=== PATIENT | female | born 1940 | race Caucasian/White ===

== ENCOUNTER 2016-12-25 13:45 | Outpatient (CLI) | payer MEDICARE, OTHER ==
--- OUTSIDE RECORDS SUMMARY | 2016-12-25 15:40 | XMS | Clinical Summary ---
:1940 Author Organization [facility] Address [address] [place] [address] Phone Care Team Providers Name Role Phone , Primary Care Provider Unavailable Allergies Not on File Current Medications Not on file Active Problems Not on file Social History Tobacco Use Types Packs/Day Years Used Date Never Assessed Sex Assigned at Date Recorded Not on file Last Filed Vital Signs Not on file Plan of Treatment Not on file Results Not on filefrom Last 3 Months
[2016-12-25] MEDS ORDERED: Gadobenate Dimeglumine 529 MG/1 ML (20ML VIAL) ONE (16:05)
--- NOTE | 2016-12-25 17:08 | RAD ---
FOUR VIEWS OF THE LUMBAR SPINE 12/25/16 COMPARISON: None. HISTORY: Lumbar radiculopathy, back pain with pain radiating into bilateral legs. FINDINGS: Standing frontal radiograph is markedly limited secondary to rotation. There is dextroscoliosis at t he thoracolumbar junction with a rotatory component. There is also significant rotolevoscoliosis of the lumbar spine. The degree of rotation and motion significantly limits evaluation of the frontal f ilm. The neutral lateral exam demonstrates severe anterior wedge compression fracture of L1 vertebral bod y with approximately 75-80% loss of vertebral body height anteriorly. There is an anterior wedge com pression fracture of T12 with approximately 35% loss of vertebral body height. No definite fracture of L2, L3, L4 or L5 noted. There is atherosclerotic calcification of the abdominal aorta. There is multilevel lower lumbar spin e facet hypertrophic change. Standing neutral lateral imaging demonstrates retrolisthesis of L4 on L5 in the 7 mm range. The retrolisthesis of L4 on L5 is decreased significantly on flexion to approximately 2-3 mm. On ext ension imaging, the retrolisthesis of L4 on L5 measures in the 7 mm range. Mild retrolisthesis at L1-2, L2-3, and L3-4 is noted as well, measuring 5 mm on neutral imaging at L 1-2, L2-3 and L3-4. Upon flexion, the retrolisthesis at L1-2, L2-3 and L3-4 measures approximately 5 mm at each level and on extension, this retrolisthesis of L1-2, L2-3, and L3-4 is also unchanged at approximately 5 mm. IMPRESSION: Multilevel degenerative change seen within the lumbar spine as detailed above. There is also age ind eterminate fracture deformity at T12 and L1 as described above. There is prominent rotoscoliosis inv olving the thoracolumbar spine. POS: [facility]
--- NOTE | 2016-12-25 21:33 | MRI ---
LUMBAR SPINE MRI WITH AND WITHOUT CONTRAST 12/25/16 COMPARISON: None. HISTORY: Lumbar radiculopathy, low back pain radiating down bilateral legs. Patient denies history of surgery or injury. Patient reports a history of pain for "several years." TECHNIQUE: Multiplanar and multisequence MRI imaging of the lumbar spine provided with and without contrast. FINDINGS: Assuming five lumbar type vertebral bodies, there is a severe compression deformity of the L1 verteb ral body with approximately 80% loss of vertebral body height centrally. There is mild retropulsion at the L1 level associated with this fracture with no associated central canal stenosis. The STIR im aging demonstrates mild edema within the central aspect of this L1 vertebral body fracture suggestin g that it is acute/subacute in nature. There is a fracture of the T12 vertebral body with minimal re tropulsion resulting in no significant central canal stenosis. The degree of vertebral body height l oss associated with the T12 fracture is in the 30% range and STIR imaging demonstrates no evidence f or edema suggesting that this T12 fracture is chronic. There is no significant anterolisthesis or retrolisthesis seen within the lumbar spine. The conus medullaris terminates at the T12-L1 level. T12-L1: Disc space narrowing and disc desiccation. Mild facet hypertrophy bilaterally. No significan t central canal or neural foraminal stenosis. Perineural sleeve cyst noted on the right. L1-2: Mild bilateral facet hypertrophy. There is mild disc space narrowing. No significant central c anal or neural foraminal stenosis. Small nerve root sleeve cyst on right. L2-3: Mild bilateral facet hypertrophy and hypertrophy of the ligamentum flavum. Mild disc space todd rowing and disc bulge with no significant central canal stenosis. Mild bilateral neural foraminal st enosis, right greater than left. L3-4: Mild bilateral facet hypertrophy and hypertrophy of the ligamentum flavum. There is disc space narrowing, disc desiccation and mild disc bulge with no significant central canal stenosis. Mild bi lateral neural foraminal stenosis, right greater than left. L4-5: There is moderate facet hypertrophy bilaterally, left greater than right. There is disc space narrowing, disc desiccation, and disc bulge with a mild/moderate degree of central canal stenosis. T here is mild/moderate bilateral neural foraminal stenosis, right greater than left. L5-S1: There is disc desiccation. There is a central annular tear. There is mild bilateral facet hyp ertrophy. There is a probable small synovial cyst associated with the medial aspect of the right fac et joint measuring in the 7 mm range. There is minimal central canal stenosis, primarily right sided . No significant neural foraminal stenosis. There is a multiloculated complex, primarily T2 hyperintense lesion within the left upper quadrant o f the abdomen which appears to be associated with a distal pancreatic body and tail of the pancreas. This is a multiloculated nonspecific septated lesion, with a component measuring up to 3 cm in AP d imension. It involves a portion of the expected location of the pancreatic body and tail measuring a t least 5-6 cm in length. There is a probable exophytic left renal cyst measuring in the 4-5 cm rang e. Numerous T2 hyperintense lesions are seen associated with the left kidney, likely on the basis of mu ltiple small left renal cysts. There is a T2 hyperintense structure inferior to the right kidney with an associated tubular T2 hype rintense structure. Perhaps this is an ectopic gallbladder with dilated extrahepatic biliary tree. T his could potentially be related to bowel. There is trace perihepatic free fluid. The hepatic parenchyma appears markedly irregular, nodular an d heterogeneous. The postcontrast imaging demonstrates no abnormal enhancement involving nerve roots of the cauda equ russ. No discrete abnormal enhancement is seen involving intervertebral discs or imaged osseous struc tures. IMPRESSION: 1. Complex multiloculated T2 hyperintense lesion in the region of the distal pancreatic body an d tail, concerning for a cystic pancreatic neoplasm. 2. Marked heterogeneity of the hepatic parenchyma with a lobulated peripheral contour which may represent an infiltrating hepatic process or cirrhotic change. 3. L1 fracture with edema suggesting an acute/subacute age. 4. Multilevel degenerative change. Incidental findings within the abdomen/pelvis should be further assessed with CT examination of abdo men and pelvis with and without IV contrast using a pancreatic mass protocol. Results and recommendations for further imaging discussed with Dr. Watts at 3:55 p.m., 12/25/16. Code CR POS: [facility]
== END 2016-12-25 13:46 | disposition home or self-care (01) ==
LOC: TBSIIMAG 13:45
PROVIDERS: ATTEND Surgery
DX: M47.26 Other spondylosis with radiculopathy, lumbar region (principal); M54.9 Dorsalgia, unspecified; S32.019A Unspecified fracture of first lumbar vertebra, initial encounter for closed fracture; R60.0 Localized edema
CPT/HCPCS: 72110; 72158; A9579

== ENCOUNTER 2017-02-28 09:03 | Outpatient (CLI) | payer MEDICARE, OTHER ==
--- NOTE | 2017-02-28 12:34 | CT ---
EXAM: THORACIC SPINE CT WITHOUT CONTRAST: HISTORY: Thoracolumbar fracture. Back pain mainly along the lower back with extension to the left leg. COMPARISON: None. TECHNIQUE: Thoracic spine CT is performed in the axial plane. Reformatted images are submitted for interpretati on. The thoracic spine as well as the L1 and L2 vertebral bodies are included on this exam. FINDINGS: There is atherosclerosis of the aorta. Heart size is within normal limits. There are coronary calci fications. There is no evidence of lymphadenopathy. No retroperitoneal mass, lymphadenopathy, or hematoma. Visualized solid organs are unremarkable. Incompletely evaluated bilateral renal cysts. No retroperitoneal mass, lymphadenopathy, or hematoma. Scarring of the left lung apex. There is a cavitary lesion of the right lung apex with a thickened n odular wall measuring 3.3 x 2.1 cm. Additional bronchiectasis and scarring in the right upper lobe a re noted. Focal nodule in the upper lobe adjacent to the thoracic aorta measuring 1.4 x 0.9 cm. There is diffuse bone demineralization. There is mild loss of vertebral body height at the T2 verteb ral body level. There is previous vertebroplasty change with moderate loss of vertebral body height at T7. Vertebroplana at T9 is noted. Mild loss of vertebral body height at T10. Vertebroplana at L 1. Calcification of the disk at the T10-T11 and T11-T12 level. Limited evaluation of the contents of the central spinal canal and neural foramina. No high-grade ce ntral canal stenosis. Varying degrees of foraminal narrowing. IMPRESSION: 1. Previous vertebroplasty at T7. 2. 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 3. Varying degrees of central canal stenosis and foraminal narrowing. Evaluation is limited by dee evans. POS: [facility]
--- NOTE | 2017-02-28 12:45 | CT ---
CT LUMBAR SPINE NONCONTRAST: 02/28/2017 HISTORY: A 76-year-old female with S22.008A (thoracolumbar fractures). TECHNIQUE: On this lumbar spine CT, axial images were obtained from the L1-L2 level through the S4-S5 level, wit h coronal and sagittal reconstructions. The T12-L1 and the L1 levels are evaluated on the thoracic s pine CT obtained on the same day. FINDINGS: There is dextroscoliosis of the thoracic spine and levoscoliosis of the lumbar spine, with the apex o f the lumbar curvature at L4-L5. There are five lumbar type vertebrae. No spondylolysis and no carlos a r spondylolisthesis. All of the lumbar vertebral body heights, from L1 through L5, are maintained. T12: Old burst fracture with collapse of vertebral body height. See separate report of thoracic spi ne CT. T12-L1: No central stenosis. Mild bilateral neural foraminal stenosis. L1-L2: No central stenosis or high-grade neural foraminal stenosis. No severe disk space narrowing. L2-L3: Mild disk space narrowing, asymmetrically greater posteriorly and to the right. Mild disk bu lge. Mild ligamentum flavum thickening. Mild degenerative facet changes. Mild to moderate central spinal canal stenosis. Bilateral mild to moderate neural foraminal stenosis. L3-L4: Mild to moderate ligamentum flavum thickening. Mild degenerative facet changes. Disk space maintained. Mild disk bulge. Mild to moderate bilateral neural foraminal stenosis. Moderate centra l spinal canal stenosis. Disk space maintained. L4-L5: Moderate ligamentum flavum thickening. Mild to moderate bilateral degenerative facet changes . Diffuse disk bulge, larger at this level than at the above levels. Moderate to severe right neura l foraminal stenosis. Moderate left neural foraminal stenosis. Severe central spinal canal stenosis . Mild disk space narrowing, asymmetrically on the right side. L5-S1: An approximately 0.9 x 0.7 cm synovial cyst arising from the right facet complex indents the right posterolateral aspect of the thecal sac. Mild central spinal canal stenosis. Disk space maint ained. Mild diffuse disk bulge. No high-grade neural foraminal stenosis. No high grade bilateral d egenerative facet changes. There is a small amount of free fluid in the pelvic cavity. There is a small amount of free fluid in the right retroperitoneum, inferior to the right renal lower pole. Alternatively, this could be a l arge pedunculated cyst arising from the lower pole cortex of the right kidney. This is incompletely evaluated. IMPRESSION: 1. S-shaped scoliosis of the thoracolumbar spine. 2. Old burst fracture of T12. 3. Severe central spinal canal stenosis at L4-L5. 4. Osteopenia. 5. No compression fracture of the lumbar spine. POS: [facility]
== END 2017-02-28 09:04 | disposition home or self-care (01) ==
LOC: TBSIIMAG 09:03
PROVIDERS: ATTEND Surgery
DX: S22.009A Unspecified fracture of unspecified thoracic vertebra, initial encounter for closed fracture (principal); S32.009A Unspecified fracture of unspecified lumbar vertebra, initial encounter for closed fracture; M48.04 Spinal stenosis, thoracic region; M48.061 Spinal stenosis, lumbar region without neurogenic claudication; M85.80 Other specified disorders of bone density and structure, unspecified site; M41.9 Scoliosis, unspecified; Z98.1 Arthrodesis status
CPT/HCPCS: 72128; 72131

== ENCOUNTER 2019-02-08 13:34 | Emergency (ER) | payer MEDICARE, OTHER ==
--- NOTE | 2019-02-08 14:37 | RAD ---
Exam: XR Wrist 3 Rt View STANDARD HISTORY: Fall 10 days ago with injury to right wrist. Patient has pain with range of motion involving the righ t wrist. COMPARISON: None FINDINGS: There is an impacted fracture involving the distal right radial metaphysis. Osteoarthritis involves t he first carpal metacarpal joint. Osteopenia is present. IMPRESSION: 1. Impacted fracture distal right radial metaphysis. 2. Osteopenia and osteoarthritis.
[2019-02-08] MEDS ORDERED: Adacel (T-DAP) 0.5 ML SYRINGE ONE (15:38)
== END 2019-02-08 15:50 | disposition home or self-care (01) ==
LOC: ERS 13:34
DX: S59.201A Unspecified physeal fracture of lower end of radius, right arm, initial encounter for closed fracture (principal); E05.90 Thyrotoxicosis, unspecified without thyrotoxic crisis or storm; K74.60 Unspecified cirrhosis of liver; F17.210 Nicotine dependence, cigarettes, uncomplicated; Z79.899 Other long term (current) drug therapy; W18.09XA Striking against other object with subsequent fall, initial encounter
CPT/HCPCS: 29125; 90471; 90715

== ENCOUNTER 2020-03-16 20:19 | Inpatient (IN) | payer MEDICARE, OTHER ==
[2020-03-16] MEDS ORDERED: Morphine 4 MG/ML VIAL ONE ×2 (20:28→22:04)
[2020-03-16] MEDS ORDERED: Ondansetron PF 4 MG/2 ML Vial ONE ×2 (20:29→22:39)
--- NOTE | 2020-03-16 20:52 | RAD ---
RIGHT HIP THREE VIEWS: 03/16/20 HISTORY: Fall with hip pain. The bones are demineralized. The right femoral neck fracture is seen. IMPRESSION: Right femoral neck fracture. POS: [facility]
--- NOTE | 2020-03-16 21:08 | RAD ---
PORTABLE CHEST: 03/16/20 HISTORY: Preop. Heart size within normal limits. There are atherosclerotic changes of the aorta. There is a nodular a cass within the right upper lobe. Reviewing a prior 02/28/2017 CT of the thoracic spine, showed a cavita ry lesion in that area on that previous examination. This may just represent the residual changes. I t appears somewhat smaller as compared to the prior examination, less of the cavitary component. No focal infiltrative lung process seen. Scoliotic changes of the spine. IMPRESSION: 1. Right upper lobe nodular density which has been seen on a previous 02/28/2017 exam. 2. No acute infiltrative process. POS: [facility]
[2020-03-16 21:44] LABS: #Basophils 0.1 thou/uL (0.0-0.2); #Eosinphils 0.1 thou/uL (0.0-0.7); #Monocytes 1.3 thou/uL (0.11-0.59); %Basophils 0.8 % (0.0-1.0); %Eosinophils 0.5 % (0.0-10.0); %Lymphocytes 8.3 % (21.0-51.0); %Monocytes 10.3 % (0.0-10.0); %Neutrophils 80.1 % (42.0-75.0); Hemoglobin 12.6 g/dL (12.0-16.0); Mean Corpuscular Hemoglobin 32.1 pg (27.0-31.0); Mean Platelet Volume 7.3 fL (7.4-10.4); Platelet Count 192 thou/uL (130-400); RBC Distribution Width 11.7 % (11.5-14.5); Red Blood Cell (RBC) Count 3.91 mill/uL (4.20-5.40); White Blood Cell (WBC) Count 12.5 thou/uL (4.8-10.8)
[2020-03-16 21:50] LABS: INR-International Normal Ratio 1.2; PTT 27.9 sec (22.9-36.1); Prothrombin Time 15.1 sec (12.0-14.7)
[2020-03-16 22:09] LABS: ALT (SGPT) 14 U/L (8-55); AST (SGOT) 25 U/L (5-34); Albumin 3.4 g/dL (3.4-4.8); Alkaline Phosphatase 60 U/L (40-110); Anion Gap 13 mmol/L (10-20); BUN (Urea Nitrogen) 19 mg/dL (9.8-20.1); Bilirubin, Total 1.2 mg/dL (0.2-1.2); Calc. Creatinine Clearance 0 mL/min (70-130); Carbon Dioxide 23 mmol/L (23-31); Chloride 106 mmol/L (98-107); Globulin 3.5 g/dL (2.4-3.5); Glucose 90 mg/dL (83-110); Potassium 4.2 mmol/L (3.5-5.1); Protein, Total 6.9 g/dL (6.0-8.3); Sodium 138 mmol/L (136-145)
[2020-03-16] MEDS ORDERED: Fentanyl 100 MCG/2 ML VIAL ONE (22:39)
[2020-03-16] MEDS ORDERED: Ketorolac Tromethamine 30 MG/ML VIAL ONE (23:00)
--- NOTE | 2020-03-17 00:35 | HP ---
REQUESTING PHYSICIAN: Dr. Le. ATTENDING SURGEON: Dr. Kevin. CONSULTATIONS: Orthopedics, Dr. Menjivar. HISTORY OF PRESENT ILLNESS: The patient is an 79-year-old woman, who was brought to the emergency department this evening after she had a ground level fall. The patient is primary caregiver to her , who has severe Parkinson's and Alzheimer's and he is primarily wheelchair bound daughter can gather, it appears that her father had gotten up and trying to get out of bed and ended up causing the mom to fall. She was brought to the emergency department where she underwent evaluation and examination, was noted to have a right femoral neck fracture. At which time, we were asked to evaluate the patient for admission and obtain Orthopedic consultation. The patient reports that she did not hit her head or have a loss of consciousness and she had no syncopal symptoms around her fall. ALLERGIES: PENICILLIN. CURRENT MEDICATIONS: Levothyroxine. PAST MEDICAL HISTORY: 1. Liver cirrhosis. 2. Pancreatic tumor. 3. Hyperthyroidism. PAST SURGICAL HISTORY: Pancreatic biopsy, cholecystectomy, radiation therapy to the thyroid. SOCIAL HISTORY: The patient lives independently at home in [place] with her . She smokes approximately half a pack of cigarettes per day and has for approximately 30 years. She denies drug or tobacco use. REVIEW OF SYSTEMS: 10-point review of systems is negative as otherwise stated. PHYSICAL EXAMINATION: VITAL SIGNS: Blood pressure 151/51, heart rate 91, respirations 15, oxygen saturation 100% on 3 L via nasal cannula, and temperature is 97.2. GENERAL: The patient is resting in bed. She is having slight discomfort at the time of my examination. The emergency room nurse was medicating her at the time of my visit, which greatly helped. The patient is conversant and appropriate. Her [place] Coma Scale is 14, -1 for eye opening. HEENT: Head is normocephalic and atraumatic. Eyes, extraocular motion intact. PERRLA bilaterally. Ears are atraumatic without discharge. Nose is atraumatic without discharge. Oropharynx is clear. NECK: Nontender. Trachea is midline with no JVD. CHEST: Clear to auscultation with good inspiratory and expiratory effort. HEART: Regular rate and rhythm. ABDOMEN: Soft, flat, nontender with active bowel sounds. PELVIS: Stable with tenderness to palpation to the right hip consistent with her fracture. BACK: Atraumatic and nontender. The patient does have skin tears noted on her left upper extremity that have been dressed and bandaged by the emergency department. LABORATORY FINDINGS: White blood cell count 12.5, hemoglobin 12.6, hematocrit 39.2, platelets 192. Sodium 138, potassium 4.2, chloride 106, CO2 of 23, BUN 19, creatinine 1.04, glucose 90. LFTs are unremarkable. Troponin 0.016. INR 1.2. RADIOGRAPHS: Views of the right hip show a right femoral neck fracture. AP chest x-ray shows no acute infiltrative process. ASSESSMENT AND PLAN: 1. Status post ground level fall. 2. Right femoral neck fracture. 3. History of liver cirrhosis, pancreatic tumor and hypothyroidism after radiation therapy. PLAN: Plan will be to admit the patient to the surgical floor. She will be made n.p.o. after midnight. We will do pain control, pulmonary toilet, gastritis, and mechanical VTE prophylaxis. The Emergency Department has notified Dr. Menjivar, he plans on surgery tomorrow. The patient has COVID test pending after discussion with the patient and daughter, they would definitely be interested in inpatient rehab and/or a swing bed facility in [place], but would also consider [facility]. The evaluation, examination, laboratory, and radiographic findings were discussed with Dr. Kvein prior to this dictation. Job ID: [id number]
[2020-03-17] MEDS ORDERED: Dextrose 5% in Water 1,000 ML IV PRN (00:36)
[2020-03-17] MEDS ORDERED: Ondansetron PF 4 MG/2 ML Vial IVP PRN (00:36)
[2020-03-17] MEDS ORDERED: hydrALAZINE 20 MG/ML VIAL SLOW IVP PRN (00:36)
[2020-03-17] MEDS ORDERED: Ondansetron ODT 4 MG TAB PO PRN (00:36)
[2020-03-17] MEDS ORDERED: traMADol HCl 50 MG TAB PO PRN (00:36)
[2020-03-17] MEDS ORDERED: Morphine 2 MG/ML VIAL SLOW IVP PRN (00:36)
[2020-03-17] MEDS ORDERED: Dextrose 50% Abboject 50 ML SYRINGE SLOW IVP PRN (00:36)
[2020-03-17 00:42] VITALS: BMI 15.6
[2020-03-17] MEDS: Sodium Chloride 0.9% 1,000 ML IV SCH ×2 (01:10→12:57)
[2020-03-17] MEDS: Ibuprofen 600 MG TAB PO SCH ×3 (05:14→20:56)
[2020-03-17] MEDS: Acetaminophen 325 MG TAB PO SCH ×3 (05:14→18:49)
[2020-03-17 07:23] LABS: #Basophils 0.1 thou/uL (0.0-0.2); #Lymphocytes 1.3 thou/uL (1.20-3.40); #Monocytes 1.4 thou/uL (0.11-0.59); %Basophils 0.6 % (0.0-1.0); %Eosinophils 0.2 % (0.0-10.0); %Lymphocytes 11.2 % (21.0-51.0); %Monocytes 12.2 % (0.0-10.0); %Neutrophils 75.9 % (42.0-75.0); Hemoglobin 11.9 g/dL (12.0-16.0); Mean Corpuscular HGB CONC 32.2 g/dL (32.0-36.0); Mean Corpuscular Hemoglobin 32.7 pg (27.0-31.0); Mean Platelet Volume 7.5 fL (7.4-10.4); Platelet Count 162 thou/uL (130-400); RBC Distribution Width 11.5 % (11.5-14.5); Red Blood Cell (RBC) Count 3.63 mill/uL (4.20-5.40); White Blood Cell (WBC) Count 11.8 thou/uL (4.8-10.8)
[2020-03-17 07:48] LABS: Anion Gap 11 mmol/L (10-20); BUN (Urea Nitrogen) 19 mg/dL (9.8-20.1); Calc. Creatinine Clearance 31 mL/min (70-130); Calcium 8.4 mg/dL (7.8-10.44); Carbon Dioxide 27 mmol/L (23-31); Chloride 105 mmol/L (98-107); Glucose 89 mg/dL (83-110); Magnesium 1.4 mg/dL (1.6-2.6); Phosphorus 3.3 mg/dL (2.3-4.7); Potassium 4.3 mmol/L (3.5-5.1); Sodium 139 mmol/L (136-145)
--- NOTE | 2020-03-17 08:44 | CON ---
DATE OF CONSULTATION: 03/17/2020 REQUESTING PHYSICIAN: Dr. [place] Kevin. CONSULTING PHYSICIAN: 1. Dr. Curly Urbina. 2. Dr. Joe Menjivar. REASON FOR CONSULTATION: Right femoral neck fracture. BRIEF CLINICAL HISTORY: Huey is an 79-year-old female, who fell resulting in a right hip fracture when she was attempting to lift her off the floor, who is a homebound Parkinson's and dementia patient. She felt immediate onset of right buttock and thigh pain when she fell. EMS was dispatched. The patient was brought to [facility], where plain radiographs demonstrated a displaced femoral neck fracture with a little bit of a subacute appearance on radiograph. Our service has been consulted for evaluation of the fracture and definitive orthopedic management. The patient otherwise is a very active patient despite lifelong smoking. 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 PAST MEDICAL HISTORY: 1. Liver cirrhosis. 2. Pancreatic tumor. 3. Hyperthyroidism. 4. Hypertension. PAST SURGICAL HISTORY: 1. Pancreatic biopsy. 2. Cholecystectomy. 3. Radiation of thyroid. MEDICATIONS: Levothyroxine. ALLERGIES: SHE CLAIMS PENICILLIN GAVE HER A RASH MANY YEARS AGO. SOCIAL HISTORY: She lives independently with her . She smokes half-pack of cigarettes a day, has done so for about 30 years. She denies ethanol or illicit drug abuse. She denies any loss of consciousness, fever, chills, nausea, vomiting, chest pain, dyspnea, dyspnea on exertion other than her baseline, and no constitutional symptoms such as fevers, chills, nausea, vomiting. PHYSICAL EXAMINATION: This is an elderly, frail-appearing woman, in no apparent distress. She is conversive and pleasant to talk with. Appropriate, nonfocal. Visual inspection of the right lower extremity demonstrates her to have shortening and external rotation of the right lower extremity relative to the left. She is neurovascularly intact. She has full digital excursion. She appears very thin with muscular wasting appreciated throughout. IMAGING STUDIES: Two-view right hip demonstrates a varus angulated shortened right femoral neck fracture with fracture self appears subacute in nature, but the history is just more descriptive of an acute ground level fall fracture. IMPRESSION: Right hip femoral neck fracture, status post ground level fall. PLAN: The risks, benefits, options, alternatives, and rationale for proceeding with right hip hemiarthroplasty has been explained in great detail to the patient. She is ready to proceed. All questions were answered. No guarantee of outcome has been stated or implied. Job ID: [id number]
[2020-03-17 08:48] LABS: SARS-CoV-2 PCR by NAA Not Detected (NotDetected)
[2020-03-17] MEDS ORDERED: Fentanyl 100 MCG/2 ML VIAL ONE (08:50)
[2020-03-17] MEDS ORDERED: Phenylephrine 10 MG/ML VIAL ONE (08:50)
[2020-03-17] MEDS ORDERED: Famotidine/PF 20 mg/2ml Vial SLOW IVP SCH (09:00)
[2020-03-17] MEDS ORDERED: Clindamycin/D5W 900 mg/50 ml Premix Bag ONE (09:13)
[2020-03-17] MEDS ORDERED: Levofloxacin 500 mg/D5W 100 ml Premix Bag ONE (09:13)
[2020-03-17] MEDS ORDERED: PROPOFOL 200 MG/20 ML VIAL ONE (09:59)
[2020-03-17] MEDS ORDERED: Lidocaine 1% PF 5 ML VIAL ONE (09:59)
[2020-03-17] MEDS ORDERED: Glycopyrrolate 0.2 MG/ML 5 ML SYRINGE ONE (09:59)
[2020-03-17] MEDS ORDERED: Ondansetron PF 4 MG/2 ML Vial ONE (09:59)
[2020-03-17] MEDS ORDERED: Rocuronium Bromide 10 MG/ML (10ML VIAL) ONE (09:59)
[2020-03-17] MEDS ORDERED: Dexamethasone 20 MG/5 ML VIAL ONE (09:59)
[2020-03-17] MEDS ORDERED: Promethazine HCl 25 MG/ML VIAL SLOW IVP PRN (10:53)
[2020-03-17] MEDS ORDERED: Promethazine HCl 25 MG/ML VIAL IM PRN (10:53)
[2020-03-17] MEDS ORDERED: Ondansetron HCl/PF 4 MG/2 ML Vial IVP PRN (10:53)
--- NOTE | 2020-03-17 11:45 | RAD ---
EXAM: XR Hip Rt 1 View PROVIDED CLINICAL HISTORY: Right hip hemiarthroplasty COMPARISON: 03/16/2020 FINDINGS: Groin lateral view of the right hip demonstrates interval changes of right hip arthroplasty. Associat ed soft tissue gas and cutaneous mikie. IMPRESSION: As above.
--- NOTE | 2020-03-17 11:46 | RAD ---
EXAM: XR Pelvis AP STANDARD PROVIDED CLINICAL HISTORY: Status post hemiarthroplasty COMPARISON: 03/16/2020 FINDINGS: Interval postoperative changes of right hip arthroplasty. No evidence for fracture or other acute oss eous abnormality. Soft tissue gas and cutaneous mikie are seen. Left hip joint space appears preserved. Vascular calcifications are seen. IMPRESSION: As above.
--- NOTE | 2020-03-17 12:46 | OP ---
DATE OF PROCEDURE: 03/17/2020 PROCEDURE PERFORMED: Right hip hemiarthroplasty, bipolar. PREOPERATIVE DIAGNOSIS: Right displaced femoral neck fracture. POSTOPERATIVE DIAGNOSIS: Right displaced femoral neck fracture. COMPLICATIONS: None. ESTIMATED BLOOD LOSS: 50 mL. ATG JAVA DEVELOPER: Drew Ortez PA-C IMPLANTS: DePuy Basic Press-Fit stem size 5 with a +1.5 x 46 mm bipolar shell. INDICATIONS: Ms. Carvalho is an 79-year-old female, who fell and fractured her right hip. She has been indicated for hemiarthroplasty of the hip to restore mobility and prevent complications of prolonged bedrest. Risks have been reviewed. She wants to proceed with the operation. DESCRIPTION OF PROCEDURE: Ms. Carvalho was identified in the preoperative holding area. Her correct extremity was marked. She was carried to the operating room. She was positioned supine. General anesthesia was induced. A multidisciplinary time-out was performed. The right lower extremity was prepped and draped in sterile fashion. We began the procedure with a posterior approach to the hip. We dissected down through the subcutaneous tissues to the fascia, which was opened. We then exposed the short external rotators. At this point, we made a capsulotomy. We then exposed the underlying hip joint. The piriformis tendon was left intact. Next, we proceeded to perform an osteotomy of the femoral neck using an oscillating saw. We removed all bony fragments and irrigated. Then, we began femoral preparation. We entered the intramedullary canal of the femur. We followed this by lateralizing the femoral canal. We then reamed and broached to a size 5. At this point, we used our trials to broach up to a size 5. We trialed with a +1.5, which gave good range of motion and stability. Leg length was equal. We removed our trial components. We then placed our final bipolar hip components. At this point, we reduced the hip once more and checked stability. We then closed. The short external rotators and capsule were repaired with Ethibond suture through drill holes. We followed this with a fascial closure. A sterile dressing was applied. The patient was taken to the recovery room in good condition without complication. Job ID: [id number]
[2020-03-17] MEDS: Polyethylene Glycol 3350 17 GM Packet PO SCH (12:57)
[2020-03-17] MEDS: Senokot S 8.6-50 MG TAB PO SCH ×2 (12:57→20:56)
[2020-03-17] MEDS ORDERED: Magnesium Sulfate 3 GM in Sodium Chloride 0.9% 100 ML IVPB SCH (13:30)
--- NOTE | 2020-03-17 14:36 | PRG ---
DATE OF SERVICE: 03/17/2020 The patient was seen this afternoon postoperatively. SUBJECTIVE: An 79-year-old female, hospital day #1, just postop today, postop day 0, status post ORIF of right femoral neck fracture, ground level fall. She is still somewhat sedated on my visit. She is alert. She has communicated with the nurse and her daughter at the bedside. She does not want to keep her oxygen on and her oxygen level is actually fairly low on my arrival. I have turned the flow rate down as this was bothering her to 2 L/minutes and placed back on her nares and her oxygen level goes up to 97% to 98%. She does not report any pain. Her vital signs have been otherwise stable. She came through the procedure well. OBJECTIVE: VITAL SIGNS: Temperature is 97.9, blood pressure is , heart rate is 80, respiratory rate is 16, saturating 97% on 2 L of oxygen nasal cannula. GENERAL: This is an 79-year-old female, sitting up, she is somewhat thin and frail appearing. HEENT: Normocephalic and atraumatic. Her mucous membranes are dry. Trachea is midline. RESPIRATORY: Equal rise and fall. Her breath sounds are clear to auscultation in upper and lower lobes bilaterally. CARDIOVASCULAR: Regular rate and rhythm. ABDOMEN: Soft. PELVIS: Stable. EXTREMITIES: She has dry dressing. Warm distal extremities. SKIN: Warm and dry. NEUROLOGIC: She is alert to verbal. She is oriented and follows all commands. GCS is 14. LABORATORY DATA: From today, white blood cell count 11.8, platelets are 162, hemoglobin and hematocrit are 11.9 and 36.9 respectively. Sodium is 139, potassium 4.3, chloride is 105, CO2 is 27, BUN is 19, creatinine 0.93, glucose 89, calcium is 8.4, phos is 3.3, mag was 1.4. ASSESSMENT AND PLAN: 1. Right femoral neck fracture, status post open reduction and internal fixation. 2. Acute traumatic pain. 3. Currently somewhat sedated from anesthesia. 4. Hypomagnesemia. 5. Concern for underlying chronic obstructive pulmonary disease/chronic smoker. 6. Advanced age. PLAN: 1. I will continue supportive care. 2. I have scheduled DuoNeb q.4 hours while awake and call the respiratory therapist to initiate dose now as the patient does feel like she has some mucus plugging. 3. Oxygen as needed to maintain SpO2 greater than 92%. 4. Continue pain management as needed. 5. Regular diet. 6. Replace electrolytes as needed. 7. Repeat labs in the morning. 8. We will start DVT prophylaxis tomorrow. 9. Orthopedics on the case, appreciate recommendations. 10. Updated the patient's daughter at bedside and answered all questions. 11. Coordinated with the bedside RN. Job ID: [id number]
[2020-03-17] MEDS: CEFAZOLIN 2 GM in Premix Bag 1 BAG IVPB SCH ×2 (14:53→20:55)
[2020-03-17] MEDS: traMADol HCl 50 MG TAB PO PRN (20:56)
[2020-03-18] MEDS: Acetaminophen 325 MG TAB PO SCH ×4 (00:35→18:43)
[2020-03-18 05:49] LABS: #Lymphocytes 1.5 thou/uL (1.20-3.40); #Monocytes 1.7 thou/uL (0.11-0.59); #Neutrophils 9.5 thou/uL (1.40-6.50); %Basophils 0.2 % (0.0-1.0); %Eosinophils 0.2 % (0.0-10.0); %Lymphocytes 11.8 % (21.0-51.0); %Monocytes 13.1 % (0.0-10.0); %Neutrophils 74.7 % (42.0-75.0); Hemoglobin 10.2 g/dL (12.0-16.0); Mean Corpuscular HGB CONC 31.6 g/dL (32.0-36.0); Mean Corpuscular Hemoglobin 32.4 pg (27.0-31.0); Mean Platelet Volume 7.5 fL (7.4-10.4); Platelet Count 162 thou/uL (130-400); RBC Distribution Width 11.6 % (11.5-14.5); Red Blood Cell (RBC) Count 3.15 mill/uL (4.20-5.40); White Blood Cell (WBC) Count 12.8 thou/uL (4.8-10.8)
[2020-03-18 06:10] LABS: Anion Gap 16 mmol/L (10-20); BUN (Urea Nitrogen) 30 mg/dL (9.8-20.1); Calc. Creatinine Clearance 20 mL/min (70-130); Carbon Dioxide 21 mmol/L (23-31); Chloride 107 mmol/L (98-107); Glucose 80 mg/dL (83-110); Magnesium 2.6 mg/dL (1.6-2.6); Phosphorus 4.9 mg/dL (2.3-4.7); Potassium 4.8 mmol/L (3.5-5.1); Sodium 139 mmol/L (136-145)
[2020-03-18] MEDS: Ibuprofen 600 MG TAB PO SCH ×3 (06:17→22:31)
[2020-03-18] MEDS: Levothyroxine Sodium 75 MCG TAB PO SCH (06:17)
[2020-03-18] MEDS ORDERED: Lactated Ringer's 500 ML IV SCH (09:15)
[2020-03-18] MEDS ORDERED: Morphine 2 MG/ML VIAL SLOW IVP SCH (09:30)
[2020-03-18] MEDS: Hydrocortisone Sod Succ/PF 100 mg/2 ml Vial IVP SCH ×2 (09:39→20:20)
[2020-03-18] MEDS: Famotidine/PF 20 mg/2ml Vial SLOW IVP SCH (09:45)
[2020-03-18] MEDS: Senokot S 8.6-50 MG TAB PO SCH ×2 (10:08→20:20)
[2020-03-18] MEDS: Polyethylene Glycol 3350 17 GM Packet PO SCH (10:08)
--- NOTE | 2020-03-18 10:12 | RAD ---
Frontal radiograph pelvis: 03/18/2020 COMPARISON: 03/17/2020 HISTORY: Pain following hemiarthroplasty FINDINGS: The right arthroplasty is dislocated. The acetabular component now projects superior and la teral to the acetabular roof, dislocated proximally by approximately 6 cm. No associated fracture is evident. Lateral postoperative mikie present. Postoperative gas noted in the imaged right thigh. IMPRESSION: Dislocated right hip arthroplasty. Results relayed to Bg Kirby via [facility] connect at 10: 07 AM 03/18/2020
[2020-03-18] MEDS ORDERED: Glycopyrrolate 0.2 MG/ML 5 ML SYRINGE ONE (10:46)
[2020-03-18] MEDS ORDERED: Ketamine 50 MG/ML (10ML VIAL) ONE (10:47)
--- NOTE | 2020-03-18 12:11 | RAD ---
PELVIC RADIOGRAPH: Date: 03/18/2020 PROVIDED CLINICAL HISTORY: Closed reduction. FINDINGS: Comparison with 03/18/2020 at 1002 hours. There is interval reduction of the right hip arthroplasty dislocation. Alignment appears near anatomi c. No evidence for fracture. Left hip joint space is preserved. IMPRESSION: As above. POS: NAOMI
--- NOTE | 2020-03-18 12:14 | OP ---
DATE OF PROCEDURE: 03/18/2020 PREPROCEDURE DIAGNOSIS: Right hip hemiarthroplasty, prosthetic posterior dislocation, spontaneous in nature. POSTPROCEDURE DIAGNOSIS: Right hip hemiarthroplasty, prosthetic posterior dislocation, spontaneous in nature. PROCEDURE PERFORMED: Closed reduction of right hip hemiarthroplasty, hip dislocation. CLOTH PRINTING INSPECTOR: TAWNY Robertson ANESTHESIOLOGIST: Osman Schwartz MD ANESTHESIA: FINDINGS: Posterior postoperative hip bipolar hemiarthroplasty dislocation. ESTIMATED BLOOD LOSS: None. DESCRIPTION OF PROCEDURE: After informed consent was obtained, the patient was positioned appropriately in the supine position. Approximately 50 mg of ketamine was given IV. She was monitored both with O2 saturation as well as serial blood pressures and with a rebreather O2 saturation at 100%. Once adequate level of anesthesia was obtained, the patient longitudinal traction with slight flexion of the knee was then introduced in an axial position. A relocation clunk was then felt with the leg lengths being near equal. Once this was obtained, the relocation clunk was confirmed with flexion and extension and external rotation and felt to be stable. Postreduction radiographs were obtained via AP pelvis, which demonstrated relocation of the prosthesis. The patient was placed in an abduction pillow. She will be nonweightbearing and kept on bedrest until final determination of instability can be made. The patient remained stable both before, during, and after with saturations of 100% and good respirations spontaneously. The procedure was terminated without any complications. The patient was allowed to awaken slowly and with continuous q.5 minute of vital signs. Job ID: [id number]
--- NOTE | 2020-03-18 14:07 | PRG ---
DATE OF SERVICE: 03/18/2020 SUBJECTIVE: Ms. Carvalho is postop day #1 status post right hip arthroplasty. She was sleeping postop. She improved today. Says she has some pain. She did feel a pop last night. Her right hip is now dislocated again. Appreciate Orthopedic's credit assistant and finding of this. The patient has worked some with PT/OT. She is tolerating somewhat of a diet. She only had liquids this morning. Otherwise, she remains hemodynamically stable. Her oxygen level has improved. However, she is still on 2 L of oxygen nasal cannula. OBJECTIVE: VITAL SIGNS: Temperature is 99.1, blood pressure 128/61, heart rate is 60, breathing 16 times per minute, 95% on 2 L nasal cannula, will go up to 100%. GENERAL: An 79-year-old thin female, sitting up, in no acute distress. HEENT: Normocephalic, atraumatic. RESPIRATORY: Equal rise and fall. Bilateral breath sounds clear. CARDIOVASCULAR: Strong pulses. ABDOMEN: Soft. PELVIS: Stable. MUSCULOSKELETAL: She is able to move her extremities. She has sensation in all of the extremities. She does have increased pain to the right hip. PSYCHIATRIC: Normal mood and affect. NEURO: Alert and oriented to person, place, time, and event. LABORATORY DATA: From today, white blood cell count is 12.8, platelets 162, hemoglobin and hematocrit 32.3 respectively. Sodium is 139, potassium 4.8, chloride is 107, CO2 is 21, BUN is 30, creatinine 1.47, glucose is 80, phosphorus is 4.9, magnesium 2.6. Cortisol level is 5.10. X-ray shows interval dislocation of the right hip arthroplasty. ASSESSMENT: 1. Right femoral neck fracture, status post right hip arthroplasty. 2. Now prosthetic right hip dislocation. 3. Acute traumatic pain. 4. Hypomagnesemia. 5. Appears slightly volume depleted with low p.o. intake over the day. 6. Concern for chronic obstructive pulmonary disease. 7. Advanced age. PLAN: 1. Going back to OR with Orthopedics today. 2. Continue DuoNebs. 3. We will give small dose of fluids. 4. Cortisol level borderline low. We will do a couple days of hydrocortisone. 5. Replace electrolytes as needed. 6. Continue all supportive care. 7. We will follow up after surgery. 8. Appreciate Orthopedic's recommendations and assistance for this case. The x-ray recognized the dislocated hip prior to our team's recommendation on the same. We will update the patient and patient's family at the bedside and answered all questions. Coordinated with multiple care teams. Job ID: [id number]
[2020-03-19] MEDS: Acetaminophen 325 MG TAB PO SCH ×5 (00:04→23:50)
[2020-03-19] MEDS: Levothyroxine Sodium 75 MCG TAB PO SCH (05:47)
[2020-03-19] MEDS: Ibuprofen 600 MG TAB PO SCH ×3 (05:50→21:56)
[2020-03-19] MEDS: Senokot S 8.6-50 MG TAB PO SCH ×2 (08:11→20:54)
[2020-03-19] MEDS: Famotidine/PF 20 mg/2ml Vial SLOW IVP SCH (08:11)
[2020-03-19] MEDS: Hydrocortisone Sod Succ/PF 100 mg/2 ml Vial IVP SCH ×2 (08:11→20:54)
[2020-03-19] MEDS: Polyethylene Glycol 3350 17 GM Packet PO SCH (08:12)
[2020-03-19 09:03] LABS: #Basophils 0.1 thou/uL (0.0-0.2); #Lymphocytes 1.7 thou/uL (1.20-3.40); #Monocytes 1.9 thou/uL (0.11-0.59); #Neutrophils 9.5 thou/uL (1.40-6.50); %Basophils 0.4 % (0.0-1.0); %Eosinophils 0.1 % (0.0-10.0); %Lymphocytes 13.1 % (21.0-51.0); %Monocytes 14.7 % (0.0-10.0); %Neutrophils 71.6 % (42.0-75.0); Hemoglobin 8.5 g/dL (12.0-16.0); Mean Corpuscular HGB CONC 32.9 g/dL (32.0-36.0); Mean Corpuscular Hemoglobin 32.7 pg (27.0-31.0); Mean Corpuscular Volume 99.2 fL (78.0-98.0); Mean Platelet Volume 7.6 fL (7.4-10.4); Platelet Count 181 thou/uL (130-400); RBC Distribution Width 11.7 % (11.5-14.5); Red Blood Cell (RBC) Count 2.59 mill/uL (4.20-5.40); White Blood Cell (WBC) Count 13.2 thou/uL (4.8-10.8)
[2020-03-19 09:46] LABS: Anion Gap 14 mmol/L (10-20); BUN (Urea Nitrogen) 53 mg/dL (9.8-20.1); Calc. Creatinine Clearance 19 mL/min (70-130); Calcium 8.5 mg/dL (7.8-10.44); Carbon Dioxide 18 mmol/L (23-31); Chloride 105 mmol/L (98-107); Glucose 129 mg/dL (83-110); Magnesium 2.5 mg/dL (1.6-2.6); Phosphorus 3.8 mg/dL (2.3-4.7); Potassium 4.7 mmol/L (3.5-5.1); Sodium 132 mmol/L (136-145)
[2020-03-19] MEDS ORDERED: Lactated Ringer's 1,000 ML IV SCH (14:00)
[2020-03-19] MEDS: Cyclobenzaprine 10 MG TAB PO PRN (14:11)
[2020-03-19] MEDS: traMADol HCl 50 MG TAB PO PRN (14:12)
--- NOTE | 2020-03-19 14:35 | PRG ---
DATE OF SERVICE: 03/19/2020 SUBJECTIVE: Ms. Carvalho is an 79-year-old female, sustained a right hip fracture, postop day #2, hospital day #3, status post ORIF of the same. Of note, she had dislocation and had a reduction yesterday 03/18, and she is now in a splint. Plan is to go for operative fixation tomorrow with Orthopedics. Pain is under control. She is tolerating diet. Her creatinine has increased a little better, p.o. intake has been poor. She is still on gentle fluids. Her urine appears dark, I have increased her fluids slightly. Otherwise, the patient has been stable, she is awake and alert. OBJECTIVE: VITAL SIGNS: Temperature is 98.4, blood pressure is 96/63, heart rate is 72, breathing 16 times per minute, on 2 L oxygen nasal cannula. GENERAL: An 79-year-old female, sitting up, in no acute distress. HEENT: Normocephalic. RESPIRATORY: Equal rise and fall. Clear breath sounds. CARDIOVASCULAR: Regular rate. ABDOMEN: Soft. PELVIS: Stable. She does have . EXTREMITIES: She has good pulses noted. PSYCH: Normal mood and affect. NEURO: Alert and oriented. GCS is 15. LABORATORY DATA: Sodium is 132, potassium is 4.7, chloride is 105, CO2 is 18, creatinine is 1.55, glucose is 129, calcium is 8.5, magnesium is 2.5, phosphorus is 3.8. Her cortisol was 5 yesterday. White blood cell count is 13.2, platelets 181, hemoglobin and hematocrit are 8.5 and 25.7 respectively. ASSESSMENT: 1. Right hip fracture secondary to fall, status post arthroplasty. 2. Status post right prosthetic hip dislocation and reduction. 3. Acute traumatic pain, improving. 4. Hypomagnesium, resolved. 5. Adrenal insufficient. 6. Acute kidney injury. 7. Concern for chronic obstructive pulmonary disease. 8. Advanced age. 9. Anemia. PLAN: 1. Continue supportive care. 2. Discussed with Orthopedics and do chemical DVT prophylaxis and SCDs secondary to going back to the OR tomorrow. 3. Continue pain control. 4. We will increase fluid slightly. 5. Encourage p.o. intake until midnight. 6. We will repeat her CBC in the morning, may very well need a bag of blood. 7. We will repeat labs in the morning. 8. Updated the patient, answered all questions at bedside. Coordinated with Orthopedics. Coordinated with nursing staff. We will continue all other supportive care. Job ID: [id number]
[2020-03-19] MEDS ORDERED: Sodium Chloride 0.9% 1,000 ML IV SCH (21:00)
[2020-03-19 21:13] LABS: Bacteria/HPF 4+ HPF (None Seen); Bilirubin Negative (Negative); Blood, Urine Negative (Negative); Clarity Turbid (Clear); Glucose, Urine (Dipstick) Normal (Negative); Ketone, Urine Negative (Negative); Leukocyte 75 Leu/uL (Negative); Nitrite Negative (Negative); Protein, Urine (Dipstick) 10 mg/dL (Neg-Trace); Renal Epithelial 0-3 HPF (None Seen); Specific Gravity, Urine 1.021 (1.002-1.036); Urobilinogen Normal mg/dL (Less than 2); WBC/HPF 21-50 HPF (0-3); pH, Urine 5.5 (5.0-9.0)
[2020-03-19 21:15] LABS: Urine Culture Reflex No No
[2020-03-20] MEDS: Levothyroxine Sodium 75 MCG TAB PO SCH (05:45)
[2020-03-20] MEDS: Ibuprofen 600 MG TAB PO SCH (06:01)
[2020-03-20] MEDS: Acetaminophen 325 MG TAB PO SCH ×4 (06:01→23:38)
[2020-03-20 08:04] LABS: #Lymphocytes 1.1 thou/uL (1.20-3.40); #Monocytes 1.5 thou/uL (0.11-0.59); #Neutrophils 8.9 thou/uL (1.40-6.50); %Eosinophils 0.1 % (0.0-10.0); %Lymphocytes 9.3 % (21.0-51.0); %Monocytes 12.9 % (0.0-10.0); %Neutrophils 77.8 % (42.0-75.0); Hemoglobin 7.3 g/dL (12.0-16.0); Mean Corpuscular HGB CONC 33.3 g/dL (32.0-36.0); Mean Corpuscular Hemoglobin 33.4 pg (27.0-31.0); Mean Platelet Volume 7.4 fL (7.4-10.4); Platelet Count 159 thou/uL (130-400); RBC Distribution Width 11.7 % (11.5-14.5); Red Blood Cell (RBC) Count 2.19 mill/uL (4.20-5.40); White Blood Cell (WBC) Count 11.4 thou/uL (4.8-10.8)
[2020-03-20] MEDS: Polyethylene Glycol 3350 17 GM Packet PO SCH (08:21)
[2020-03-20] MEDS: Hydrocortisone Sod Succ/PF 100 mg/2 ml Vial IVP SCH ×2 (08:21→20:33)
[2020-03-20] MEDS: Senokot S 8.6-50 MG TAB PO SCH ×2 (08:21→21:38)
[2020-03-20] MEDS: Famotidine/PF 20 mg/2ml Vial SLOW IVP SCH (08:22)
[2020-03-20 09:14] LABS: Anion Gap 11 mmol/L (10-20); BUN (Urea Nitrogen) 47 mg/dL (9.8-20.1); Calc. Creatinine Clearance 27 mL/min (70-130); Calcium 8.4 mg/dL (7.8-10.44); Carbon Dioxide 24 mmol/L (23-31); Chloride 106 mmol/L (98-107); Glucose 120 mg/dL (83-110); Potassium 4.4 mmol/L (3.5-5.1); Sodium 137 mmol/L (136-145)
[2020-03-20] MEDS ORDERED: Ibuprofen 200 MG TAB PO PRN (09:24)
[2020-03-20] MEDS ORDERED: traMADol HCl 50 MG TAB PO PRN ×2 (09:30)
[2020-03-20] MEDS: Ascorbic Acid 500 mg Chewable Tablet PO SCH (21:38)
[2020-03-20] MEDS: Ferrous Sulfate 325 MG TAB PO SCH (21:38)
[2020-03-21 05:19] LABS: #Basophils 0.1 thou/uL (0.0-0.2); #Lymphocytes 1.3 thou/uL (1.20-3.40); #Monocytes 1.2 thou/uL (0.11-0.59); #Neutrophils 8.7 thou/uL (1.40-6.50); %Basophils 0.5 % (0.0-1.0); %Eosinophils 0.1 % (0.0-10.0); %Lymphocytes 11.2 % (21.0-51.0); %Monocytes 10.4 % (0.0-10.0); %Neutrophils 77.9 % (42.0-75.0); Hemoglobin 7.9 g/dL (12.0-16.0); Mean Platelet Volume 7.3 fL (7.4-10.4); Platelet Count 160 thou/uL (130-400); RBC Distribution Width 11.9 % (11.5-14.5); Red Blood Cell (RBC) Count 2.38 mill/uL (4.20-5.40); White Blood Cell (WBC) Count 11.2 thou/uL (4.8-10.8)
[2020-03-21] MEDS: Acetaminophen 325 MG TAB PO SCH ×3 (05:31→18:04)
[2020-03-21] MEDS: Levothyroxine Sodium 75 MCG TAB PO SCH (05:31)
[2020-03-21 05:39] LABS: Phosphorus 2.6 mg/dL (2.3-4.7)
[2020-03-21 05:41] LABS: Anion Gap 11 mmol/L (10-20); BUN (Urea Nitrogen) 38 mg/dL (9.8-20.1); Calc. Creatinine Clearance 35 mL/min (70-130); Calcium 8.4 mg/dL (7.8-10.44); Carbon Dioxide 22 mmol/L (23-31); Chloride 107 mmol/L (98-107); Glucose 109 mg/dL (83-110); Magnesium 1.9 mg/dL (1.6-2.6); Potassium 4.6 mmol/L (3.5-5.1); Sodium 135 mmol/L (136-145)
--- NOTE | 2020-03-21 06:09 | PRG ---
DATE OF SERVICE: 03/20/2020 SUBJECTIVE: Ms. Carvalho is an 79-year-old female with a right hip fracture postop day #3, hospital day #4, status post ORIF of the same. She previously dislocated her right hip and was subsequently reduced on 03/18. The patient reports the pain is under control and she is tolerating her diet. I had a discussion today with the patient about going to rehab facility instead of going home. Daughter spoke with us that she is likely very concerned that her who has dementia is at home alone and she is concerned that he will before she gets home. Otherwise, the patient was stable with no acute problems overnight. OBJECTIVE: VITAL SIGNS: Temperature 98.3, pulse 76, respiratory rate 14, O2 saturation 97 on 3 L nasal cannula, blood pressure 112/67. GENERAL: An 79-year-old female, sitting up in bed eating lunch. No acute distress. HEENT: Normocephalic. RESPIRATORY: Equal rise and fall. No acute respiratory distress. MUSCULOSKELETAL: Moves all four extremities with limitation due to pain in right lower extremity. NEUROLOGIC: Alert and oriented x3. No focal deficits. PSYCH: Mood and affect appropriate. The patient became tearful when discussing going to rehab facility. LABORATORY STUDIES: CBC significant for white blood cell count of 11.4, that is down trending. Hemoglobin 7.3, that is down trending from 8.5 yesterday. Hematocrit downtrending 22 today, 25.7 yesterday. BMP significant for BUN of 47 and glucose of 120. ASSESSMENT: 1. Right hip fracture secondary to fall, status post arthroplasty. 2. Status post right hip prosthetic hip dislocation and reduction. 3. Acute traumatic pain, improving. 4. Hypomagnesemia, resolved. 5. Adrenal insufficiency. 6. Acute kidney injury, resolved. 7. Advanced age. 8. Anemia. PLAN: 1. Continue supportive care. Work with PT/OT/Case Management to develop plan for discharge. 2. Continue pain control. 3. Monitor urine output and p.o. intake. 4. Continue to monitor CBC. If trend continues, we will likely need transfusion. 5. Discussed case with the patient and daughter who was at bedside. Daughter was in agreement that the patient would likely benefit from acute rehab facility before returning home. Job ID: [id number] [facility]
[2020-03-21] MEDS ORDERED: PHOS-NAK 1 PKT PACK PO SCH (09:00)
[2020-03-21] MEDS: Ascorbic Acid 500 mg Chewable Tablet PO SCH ×2 (09:36→20:22)
[2020-03-21] MEDS: Aspirin 81 mg Enteric Coated Tablet PO SCH (09:36)
[2020-03-21] MEDS: Ferrous Sulfate 325 MG TAB PO SCH ×2 (09:36→20:22)
[2020-03-21] MEDS: Hydrocortisone Sod Succ/PF 100 mg/2 ml Vial IVP SCH ×2 (09:36→20:22)
[2020-03-21] MEDS: Senokot S 8.6-50 MG TAB PO SCH ×2 (09:36→20:22)
[2020-03-21] MEDS: Polyethylene Glycol 3350 17 GM Packet PO SCH ×2 (09:37→10:23)
[2020-03-21 12:51] LABS: Bacteria/HPF None Seen HPF (None Seen); Bilirubin Negative (Negative); Blood, Urine Negative (Negative); Clarity Clear (Clear); Glucose, Urine (Dipstick) Normal (Negative); Ketone, Urine Negative (Negative); Leukocyte 250 Leu/uL (Negative); Nitrite Negative (Negative); Protein, Urine (Dipstick) Negative (Neg-Trace); RBC/HPF 0-3 HPF (0-3); Specific Gravity, Urine 1.024 (1.002-1.036); Squamous Epithelial 0-3 HPF (0-3); Urobilinogen Normal mg/dL (Less than 2); pH, Urine 5.5 (5.0-9.0)
[2020-03-21 12:53] LABS: Urine Culture Reflex Yes Yes
[2020-03-21] MEDS ORDERED: Morphine 4 MG/ML VIAL ONE (14:05)
--- NOTE | 2020-03-21 14:13 | RAD ---
Exam: 1 view AP pelvis HISTORY: History of dislocation. Recent surgery Comparison 03/18/2020 FINDINGS: Dislocation of the right humeral prosthesis. Postreduction films are recommended. There is stable postoperative changes and soft tissues. IMPRESSION: Right hip dislocation Transcribed Date/Time: 03/21/2020 2:21 PM
--- NOTE | 2020-03-21 15:25 | PRG ---
DATE OF SERVICE: 03/21/2020 TIME OF EVALUATION: 1410 hours. SUBJECTIVE: I was called to the bedside by nursing staff for complaints of right hip pain and a previously closed reduced hemiarthroplasty from Friday. The patient has complained of some discomfort and pain, felt a pop in the right hip and was just changing position in bed. She cannot stand and walk. OBJECTIVE: Visual inspection of leg lengths demonstrates her to be short on the right. Internal rotation is noted to the toes and is uncomfortable for her to manipulate the hip highly suggestive of dislocation. She is neurovascularly intact, otherwise. IMAGING STUDIES: AP pelvis demonstrates posteriorly dislocated hemiarthroplasty. IMPRESSION: Right hip hemiarthroplasty with instability, currently posteriorly dislocated. PLAN: 1. N.p.o. after midnight. 2. to follow tomorrow for a conversion of right hip hemiarthroplasty to a total hip arthroplasty. The risks, benefits, options, alternatives, and rationale for proceeding with the procedure have been explained in great detail with the patient and her daughter, who accompanies her. All questions were answered. No guarantee of outcome has been stated or implied. 3. Please see orders. Job ID: [id number]
[2020-03-21] MEDS: Melatonin 3 MG TAB PO SCH (20:22)
[2020-03-21] MEDS ORDERED: Sodium Chloride 0.9% 1,000 ML IV SCH (22:00)
--- NOTE | 2020-03-21 22:20 | PRG ---
DATE OF SERVICE: 03/21/2020 SUBJECTIVE: The patient was seen during evening rounds, resting comfortably, in no distress. The patient has not voided since this morning after having her Garza catheter removed. The patient's pain is well controlled. OBJECTIVE: VITAL SIGNS: Stable, afebrile. PLAN: The patient will be n.p.o. after midnight. The patient going to the OR with Orthopedic Surgery for her right hip dislocation. We will place Garza catheter as the patient has had some urinary retention and going to the OR in the morning. Maintenance IV fluids, normal saline 80 mL an hour x1 bag. Continue pain management and supportive care. Job ID: [id number]
[2020-03-22] MEDS: Acetaminophen 325 MG TAB PO SCH ×4 (00:09→18:16)
[2020-03-22] MEDS: Levothyroxine Sodium 75 MCG TAB PO SCH (05:50)
--- NOTE | 2020-03-22 06:03 | PRG ---
DATE OF SERVICE: 03/21/2020 SUBJECTIVE: Ms. Carvalho is an 79-year-old female with right hip fracture, postoperative day #3 status post ORIF. The patient has also dislocated her right hip with subsequent reduction on 03/18. The patient reports the pain in her hip is non-bothersome. Her main complaint was pain at the site of her IV in her hand. The patient said that she is not drinking as much as she normally does and is not eating well. She reports that she is unable to get any fluids down. She was not able to tell us what her drink of choice would be. Her daughter came into the room just as we were finishing and had brought the patient a protein drink and a breakfast burrito. OBJECTIVE: VITAL SIGNS: Afebrile, normocardic, normotensive, and O2 sats in the mid 90s on 2 L of nasal cannula. GENERAL: An 79-year-old female, sitting up in bed, in no acute distress. HEENT: Normocephalic. RESPIRATORY: Equal rise and fall. No acute respiratory distress. MUSCULOSKELETAL: Appropriately moving upper extremities. NEUROLOGIC: No focal deficits. Alert and oriented x3. PSYCHIATRIC: Mood and affect appropriate and congruent. LABORATORY STUDIES: Hemoglobin increased to 7.9 from 7.3 yesterday. Sodium 135, BUN 38, and creatinine 0.83. ASSESSMENT: 1. Right hip fracture secondary to fall status post arthroplasty. 2. Status post right hip prosthetic hip dislocation and reduction. 3. Acute traumatic pain, improving. 4. Hypomagnesemia, resolved. 5. Adrenal insufficiency. 6. Acute kidney injury, resolved. 7. Advanced age. 8. Anemia. PLAN: Continue supportive care. Work with PT, OT, and Case Management to develop plan for discharge. The patient's discharge is complicated by the fact that the patient wants to be discharged to a rehab facility with her . Discussed with Case Management today. We will attempt to reach out to one more therapy site, and if they decline to place both of them, we will explore other options. Continue DVT prophylaxis and pain control. We will get a repeat UA on the patient due to urinary retention. Discussed the case with the patient and daughter who is at bedside. Daughter agrees with plan to go to acute rehab. Job ID: [id number]
[2020-03-22] MEDS: Ferrous Sulfate 325 MG TAB PO SCH ×3 (07:48→21:02)
[2020-03-22] MEDS: Ascorbic Acid 500 mg Chewable Tablet PO SCH ×3 (07:48→21:01)
[2020-03-22] MEDS: Polyethylene Glycol 3350 17 GM Packet PO SCH (07:49)
[2020-03-22] MEDS: Senokot S 8.6-50 MG TAB PO SCH ×3 (07:49→21:02)
[2020-03-22] MEDS ORDERED: Lidocaine 1% PF 5 ML VIAL ONE (09:20)
[2020-03-22] MEDS ORDERED: PROPOFOL 200 MG/20 ML VIAL ONE (09:20)
[2020-03-22] MEDS ORDERED: Rocuronium Bromide 10 MG/ML (10ML VIAL) ONE (09:20)
[2020-03-22] MEDS ORDERED: PHENYLEPHRINE-NS 100 MCG/ML 10 ML SYRINGE ONE (09:20)
[2020-03-22] MEDS ORDERED: Dexamethasone 20 MG/5 ML VIAL ONE (09:20)
[2020-03-22] MEDS ORDERED: Ondansetron PF 4 MG/2 ML Vial ONE (09:20)
--- NOTE | 2020-03-22 12:07 | PRG ---
DATE OF SERVICE: 03/22/2020 SUBJECTIVE: Ms. Carvalho is an 79-year-old female with right hip fracture postop day 3, status post ORIF. The patient's hospital stay has been complicated by dislocation of right hip with subsequent reduction on 03/18. Significantly, last night, the patient experienced another right hip dislocation. The patient was seen by Bg Kirby and the patient will be taken to surgery by Orthopedics for complete hip arthroplasty. Per patient, they are scheduled for 2:30 p.m. Otherwise, patient reports the pain is well controlled at this time and she was wanting to have water. OBJECTIVE: VITAL SIGNS: The patient has been afebrile with stable vital signs. The patient has been normotensive, normocardic, and has O2 saturations at 100 alternating between room air and 2 L nasal cannula. GENERAL: An 79-year-old female who appears stated age, sitting up in bed, in no acute distress. HEENT: Normocephalic, atraumatic. RESPIRATORY: Equal rise and fall. No acute respiratory distress. MUSCULOSKELETAL: Appropriately moving upper extremities, right lower extremity shortened and internally rotated. NEUROLOGIC: No focal deficit. Alert and oriented x3. PSYCHIATRIC: Mood and affect appropriate and congruent. LABORATORY DATA: Pelvic x-ray performed 03/21 shows dislocation of the right humeral prosthesis. ASSESSMENT: 1. Right hip fracture secondary to fall status post arthroplasty. 2. Prosthetic right hip dislocation and reduction x1, repeat dislocation 03/21. 3. Acute traumatic pain, improving. 4. Hypomagnesemia, resolved. 5. Adrenal insufficiency. 6. Acute kidney injury, resolved. 7. Advanced age. 8. Anemia. PLAN: The patient will go to the OR today with Orthopedics for a total hip arthroplasty of the right side. After surgery, patient will continue to work with PT, OT and Case Management to develop discharge plan. The patient's discharge plan is complicated due to her wanting to be in a rehab facility with her . We will attempt to make this happen, however, if we are not able to find a rehab facility in the area that can make this happen, patient will need to go to a rehab facility by herself. The patient had a repeat UA yesterday that will be reflex to urine culture, and will need to be followed up with. The patient's daughter was at the bedside whom we discussed the plan with and she was agreeable. Job ID: [id number]
[2020-03-22] MEDS ORDERED: Ondansetron HCl/PF 4 MG/2 ML Vial IVP PRN ×2 (13:50)
[2020-03-22] MEDS ORDERED: Neomycin-Polymyxin 1 ML AMP ONE ×2 (14:40)
[2020-03-22] MEDS ORDERED: Clindamycin/D5W 900 mg/50 ml Premix Bag ONE (14:47)
[2020-03-22] MEDS ORDERED: Levofloxacin 500 mg/D5W 100 ml Premix Bag ONE (14:47)
[2020-03-22] MEDS ORDERED: Fentanyl 100 MCG/2 ML VIAL ONE (15:12)
[2020-03-22] MEDS ORDERED: HYDROmorphone 2 MG/ML VIAL SLOW IVP PRN (16:24)
[2020-03-22] MEDS ORDERED: Promethazine HCl 25 MG/ML VIAL SLOW IVP PRN (16:24)
[2020-03-22] MEDS ORDERED: Meperidine HCl/PF 25 MG/ML VIAL SLOW IVP PRN (16:24)
[2020-03-22] MEDS ORDERED: Promethazine HCl 25 MG/ML VIAL IM PRN (16:24)
[2020-03-22] MEDS ORDERED: SUGAMMADEX SODIUM 200 MG/2 ML VIAL ONE (16:51)
--- NOTE | 2020-03-22 17:25 | RAD ---
RADIOGRAPH RIGHT HIP 1 VIEW: 03/22/20 at 5:06 p.m. HISTORY: 79-year-old female status post hip surgery. FINDINGS: Single cross-table lateral view. Interpreted in conjunction with AP view obtained as a separate study. There is a bipolar hip endoprosthesis in satisfactory position. IMPRESSION: Right sided bipolar hip endoprosthesis. POS: JIN
--- NOTE | 2020-03-22 17:45 | RAD ---
AP PELVIS: 03/22/20 INDICATIONS: Postop follow-up. FINDINGS/IMPRESSION: Right hip prosthesis is noted. Components show adequate position and alignment. Pelvis appears intact . Visualized left hip appears unremarkable and unchanged. Previous exam from 03/21/20 revealed dislocation of the acetabular component of this right hip prosthe sis. This dislocation has been reduced and acetabular component and the femoral component show adequa te position on this single projection. POS: AGW
--- NOTE | 2020-03-22 18:20 | OP ---
DATE OF PROCEDURE: 03/22/2020 PRE PROCEDURE DIAGNOSES: Recurrent instability, right hip hemiarthroplasty. POST PROCEDURE DIAGNOSES: 1. Recurrent instability, right hip hemiarthroplasty. 2. Right leg length inequality. 3. Right hip lipoma. PROCEDURE PERFORMED: 1. Revision of right hip hemiarthroplasty. 2. Excision of right hip lipoma. ANESTHESIA: General. BIT TRIPOLER: Yaakov Fernandez. ESTIMATED BLOOD LOSS: 100 mL. IMPLANTS: DePuy Magoffin size 4 stem was used with a +1.5 head and a 46 mm cup. SPECIMEN: Explanted hemiarthroplasty discarded and a lipoma, which was sent to path for identification. COMPLICATIONS: None. DRAINS: None. OUTCOME: Satisfactory. INDICATIONS FOR PROCEDURE: The patient is an 79-year-old lady, who is status post ground level fall sustaining a right femoral neck fracture. Approximately 5 days ago, this was treated with a right hip hemiarthroplasty. Within 24 hours of surgery, the patient had a posterior hip dislocation that was reduced at bedside. However, upon reduction, she was found to have what was felt to be a lengthening of this leg and also a very tight hip capsule anteriorly with the leg that was thrown into internal rotation. The patient has had a second hip dislocation now approximately 24 hours ago and now to undergo a revision surgery of this right hip. Informed consent has been obtained. I believe all questions answered. DESCRIPTION OF PROCEDURE: The patient was brought to the operating room and a time-out performed followed by induction of general anesthesia. Next, she was positioned in the left lateral decubitus position and a sterile prep and drape was performed of the right lower extremity. It should be noted that the hip was reduced prior to this sterile prep and drape. Next, a following the sterile prep and drape, mikie were removed from her prior surgical incision and this incision was increased in length slightly both proximally and distally. The sutures were removed in layers starting with the subcutaneous layer and then the layer closing the tensor fascia and fascia amaya. A Charnley retractor was then placed in the wound. On inspection, the patient was found to have a capsule that had been drawn into the acetabulum, between the acetabulum and the head of the hemiarthroplasty. The hip was then dislocated and the capsule removed from the joint. The hip was then again reduced however with reduction, she was still found to be quite tight with virtually no external rotation secondary to anterior capsular tightness. We inspected the hip further in the calcar cut appeared to be within normal limits, but clearly this is resulting in very tight capsule for this lady. As such, we decided to proceed with removal of this hemiarthroplasty. This was done in stepwise fashion, first removing the bipolar head and then removing the stem without much difficulty. Once removed, some bone from the anterior aspect of the neck cut was rongeured back to avoid any bony prominences and then a new calcar cut was performed approximately 5 mm above the lesser trochanter. With the completion of this, broaching was started at size 3 and continued up to size 4, which then gave excellent fit, fill with calcar cut. With this four stem in place, a +1.5 head with bipolar cup trial was attached to this stem and then the hip reduced. With shortening of the leg, she was found to now have a much more compliant anterior capsule. The leg fell into external rotation far easier and when the leg was brought into the 90-90 position, we had to approach 60 to 70 degrees of internal rotation before dislocation. As such, it was felt that the instability was probably secondary to excessive capsular tightness. The trial was then removed again. While awaiting the final size 4 stem to be opened, reinspection of the wound showed a lipoma that had worked its way out from underneath the rectus femoris. This lipoma measured approximately 6 cm in diameter. With digital manipulation, it was able to be freed up completely from its soft tissue. This was then taken out of the hip and sent to pathology for inspection and final identification. The wound then irrigated with 3 L of normal saline using Pulsavac and then the size 4 stem introduced along with the bipolar cup with a +1.5 head. Again, there was found to be reasonable stability and excellent external reduction with this new construct. The capsule was then meticulously reconstructed around the bipolar head using #2 Vicryl. This was followed by #2 Vicryl to reattach the superior and inferior gemelli. The piriformis was still intact. The wound again irrigated and #1 Vicryl was used for the fascia amaya and tensor fascia followed by 2-0 Vicryl and nylon for the skin. It should be noted that by esl instructional assistant provided traction of the leg for manipulation as well as manipulation of the leg for my broaching and trial reductions during this procedure. At the end of the procedure, needle, sponge, instrument counts were correct. There were no complications. The patient tolerated the procedure well. Job ID: [id number]
[2020-03-22] MEDS: Aspirin 81 mg Enteric Coated Tablet PO SCH ×2 (20:47→21:01)
[2020-03-22] MEDS: Melatonin 3 MG TAB PO SCH ×2 (20:48→21:02)
[2020-03-22] MEDS: Clindamycin/D5W 900 MG in Premix Bag 1 BAG IVPB SCH (20:48)
--- NOTE | 2020-03-22 22:32 | PDOC.BPN ---
- Brief Progress Note Encounter Date: 03/22/20 Encounter Time: 21:30 Patient was seen during evening rounds on the surgical floor resting comfortably in no distress. No issues reported by the patients nurse. Vital signs are stable and patient is afebrile. Plan of care is unchanged
[2020-03-23] MEDS: Acetaminophen 325 MG TAB PO SCH ×4 (00:11→18:34)
[2020-03-23] MEDS: Clindamycin/D5W 900 MG in Premix Bag 1 BAG IVPB SCH ×4 (00:11→21:16)
[2020-03-23] MEDS: Levothyroxine Sodium 75 MCG TAB PO SCH (05:47)
[2020-03-23 06:17] LABS: Anion Gap 12 mmol/L (10-20); BUN (Urea Nitrogen) 34 mg/dL (9.8-20.1); Calc. Creatinine Clearance 34 mL/min (70-130); Calcium 8.2 mg/dL (7.8-10.44); Carbon Dioxide 28 mmol/L (23-31); Chloride 106 mmol/L (98-107); Glucose 117 mg/dL (83-110); Magnesium 1.6 mg/dL (1.6-2.6); Phosphorus 2.5 mg/dL (2.3-4.7); Sodium 141 mmol/L (136-145)
[2020-03-23 06:19] LABS: Hemoglobin 11.4 g/dL (12.0-16.0); Mean Corpuscular HGB CONC 32.5 g/dL (32.0-36.0); Mean Corpuscular Hemoglobin 31.3 pg (27.0-31.0); Mean Corpuscular Volume 96.3 fL (78.0-98.0); Mean Platelet Volume 7.5 fL (7.4-10.4); Platelet Count 180 thou/uL (130-400); RBC Distribution Width 14.6 % (11.5-14.5); Red Blood Cell (RBC) Count 3.64 mill/uL (4.20-5.40); White Blood Cell (WBC) Count 13.1 thou/uL (4.8-10.8)
[2020-03-23 06:20] LABS: Band 3 % (5-11); Hypochromia SLIGHT = 6-15 cells (100X) (0-5/hpf); Lymphocytes 10 % (21-51); MDiff Complete? YES; Monocytes 26 % (0-10); Neutrophil 61 % (42-75); Platelet Morphology Comment Appears Adequate
[2020-03-23] MEDS ORDERED: Magnesium 2 GM/50 ML 2 GM in Premix Bag 1 BAG IVPB SCH (07:30)
[2020-03-23] MEDS: Polyethylene Glycol 3350 17 GM Packet PO SCH (08:51)
[2020-03-23] MEDS: Ascorbic Acid 500 mg Chewable Tablet PO SCH ×2 (08:58→21:16)
[2020-03-23] MEDS: Ferrous Sulfate 325 MG TAB PO SCH ×2 (08:58→21:17)
[2020-03-23] MEDS: Cyclobenzaprine 10 MG TAB PO PRN (08:58)
[2020-03-23] MEDS: Aspirin 81 mg Enteric Coated Tablet PO SCH ×2 (08:58→21:17)
[2020-03-23] MEDS: Senokot S 8.6-50 MG TAB PO SCH ×2 (08:59→21:16)
--- NOTE | 2020-03-23 13:43 | PRG ---
DATE OF SERVICE: 03/23/2020 SUBJECTIVE: This patient is an 79-year-old female with right hip fracture, postop day 4 from right hip hemiarthroplasty, status post ORIF. The patient's hospital stay was complicated by dislocation and subsequent reduction on 03/18 with additional dislocation on 03/21. The patient was taken to the OR on 03/22 for complete right hip arthroplasty. Today, the patient reports that overall she is doing well with no acute pain. Of note, the patient refused medications last night except for albuterol and Synthroid. Daughter is also at bedside without acute concerns at this time. OBJECTIVE: VITAL SIGNS: Most recent vital signs show a temperature of 99.1 degrees Fahrenheit, pulse 86, respirations 16, O2 saturations 93 on room air, blood pressure 113/69. GENERAL: The patient is an 79-year-old female, who appears stated age and is sitting up in bed, in no acute distress. HEENT: Normocephalic, atraumatic. RESPIRATORY: Equal rise and fall. No acute respiratory distress. MUSCULOSKELETAL: Appropriately moving upper extremities. Movement in right lower extremity limited due to pain. NEUROLOGIC: No focal deficit. PSYCHIATRIC: Mood and affect, appropriate and congruent. The patient is frustrated with being in the hospital. LABORATORY DATA: The patient's labs show white blood cell count 13.1, hemoglobin 11.4, hematocrit 35, platelets 180. BMP shows sodium 141, potassium 5.0, chloride 106, carbon dioxide 28, BUN 34, creatinine 0.84, GFR 65, glucose 117, calcium 8.2, phosphorus 2.5, magnesium 1.6. The patient had a pelvis and hip x-ray after operation on 03/22, showing complete arthroplasty in good positioning. ASSESSMENT: 1. Right hip fracture due to fall and status post hemiarthroplasty. Hemiarthroplasty revision to complete arthroplasty. 2. Prosthetic right hip dislocation and reduction x1, repeat dislocation on 03/21. 3. Acute traumatic pain, improving. 4. Adrenal insufficiency. 5. Advanced age. 6. Anemia, stable. 7. Hypomagnesemia. 8. Acute kidney injury, resolved. PLAN: We will continue with physical therapy and occupational therapy, to move placement towards discharge to a rehab facility. Today, we will replete the patient's electrolytes as indicated. We would like the patient to have a bowel movement, however, she is refusing medications. Discussed the importance of taking all of her medications and moving towards discharge. The patient hopefully will be able to go to [facility], where the most recent referral was sent by Case Management. Job ID: [id number]
[2020-03-23] MEDS: Melatonin 3 MG TAB PO SCH (21:17)
--- NOTE | 2020-03-23 23:48 | PDOC.BPN ---
- Brief Progress Note Encounter Date: 03/23/20 Encounter Time: 22:45 Patient was seen during evening rounds on the surgical floor resting comfortably in no distress. Nurse reports pepper was removed today and she is DTV. Last bladder scan was 250ml and no urge. Vital signs are stable and patient is afebrile. Plan of care is unchanged. Increase fluid intake.
[2020-03-24] MEDS: Acetaminophen 325 MG TAB PO SCH ×4 (00:32→18:08)
[2020-03-24 05:32] LABS: #Eosinphils 0.2 thou/uL (0.0-0.7); #Lymphocytes 1.8 thou/uL (1.20-3.40); #Monocytes 1.4 thou/uL (0.11-0.59); #Neutrophils 10.5 thou/uL (1.40-6.50); %Basophils 0.3 % (0.0-1.0); %Eosinophils 1.5 % (0.0-10.0); %Lymphocytes 12.7 % (21.0-51.0); %Monocytes 10.2 % (0.0-10.0); %Neutrophils 75.3 % (42.0-75.0); Hemoglobin 10.9 g/dL (12.0-16.0); Mean Corpuscular Hemoglobin 31.8 pg (27.0-31.0); Mean Corpuscular Volume 96.4 fL (78.0-98.0); Mean Platelet Volume 7.4 fL (7.4-10.4); Platelet Count 181 thou/uL (130-400); RBC Distribution Width 14.4 % (11.5-14.5); Red Blood Cell (RBC) Count 3.44 mill/uL (4.20-5.40); White Blood Cell (WBC) Count 13.9 thou/uL (4.8-10.8)
[2020-03-24] MEDS: Clindamycin/D5W 900 MG in Premix Bag 1 BAG IVPB SCH (05:49)
[2020-03-24] MEDS: Levothyroxine Sodium 75 MCG TAB PO SCH (05:50)
[2020-03-24 06:11] LABS: Anion Gap 10 mmol/L (10-20); BUN (Urea Nitrogen) 36 mg/dL (9.8-20.1); Calc. Creatinine Clearance 32 mL/min (70-130); Calcium 8.5 mg/dL (7.8-10.44); Carbon Dioxide 29 mmol/L (23-31); Chloride 104 mmol/L (98-107); Glucose 93 mg/dL (83-110); Phosphorus 3.5 mg/dL (2.3-4.7); Potassium 4.9 mmol/L (3.5-5.1); Sodium 138 mmol/L (136-145)
[2020-03-24] MEDS: Polyethylene Glycol 3350 17 GM Packet PO SCH (08:18)
[2020-03-24] MEDS: Senokot S 8.6-50 MG TAB PO SCH (08:19)
[2020-03-24] MEDS: Ferrous Sulfate 325 MG TAB PO SCH (08:19)
[2020-03-24] MEDS: Aspirin 81 mg Enteric Coated Tablet PO SCH (08:19)
[2020-03-24] MEDS: Ascorbic Acid 500 mg Chewable Tablet PO SCH (08:19)
[2020-03-24] MEDS: Cyclobenzaprine 10 MG TAB PO PRN (08:20)
[2020-03-24] MEDS ORDERED: guaiFENesin ER 600 MG TAB PO PRN (08:49)
[2020-03-24 11:34] VITALS: TEMP 98.4
[2020-03-24] MEDS ORDERED: Bisacodyl 10 MG SUPP PR PRN (12:45)
[2020-03-24 15:36] VITALS: BP 123/58
--- NOTE | 2020-03-27 06:29 | DIS ---
DATE OF ADMISSION: 03/16/2020 DATE OF DISCHARGE: 03/24/2020 ADMISSION DIAGNOSES: Mechanical fall, right femoral neck fracture. DISCHARGE DIAGNOSES: Mechanical fall, right femoral neck fracture, acute adrenal insufficiency, acute kidney injury, urinary retention, right hip dislocation x2. CONSULT PHYSICIANS: Dr. Menjivar of Orthopedic Surgery. PROCEDURES: The patient went to the OR on March 17, 2020, and had a right bipolar hip hemiarthroplasty. On March 18, 2020, she had a closed reduction of the right hip hemiarthroplasty dislocation. On March 22, 2020, she had a revision of the right hip hemiarthroplasty with excision of a right hip lipoma. HOSPITAL COURSE: The patient is an 79-year-old female, who was admitted to the Trauma Service after she had a mechanical fall with a right femoral neck fracture. She initially went to the OR for surgical fixation. Postop day 1, she had a hip dislocation and went back for closed reduction. From 3 days after that she had another hip dislocation and went back for revision of the right hemiarthroplasty. Her course was complicated by acute adrenal insufficiency and an KARLOS. Both of those resolved before discharge. The patient also had intermittent urinary retention. Before discharge, she did have a bowel movement. She never reported feeling like she had to void. A lot of this urinary retention was from frequent catheterization and there was no concern at the time of discharge. At the time of discharge, the patient's pain is well controlled. She is tolerating her diet and having bowel movement. DISCHARGE DISPOSITION: [facility] Facility, [facility]. DISCHARGE CONDITION: Satisfactory. PHYSICAL EXAMINATION: VITAL SIGNS: Temperature 98.4, pulse 76, respirations 16, oxygen saturation 93% on room air, and blood pressure 123/58. GENERAL: Well-appearing elderly female, sitting up in chair with no signs of acute distress. PULMONARY: Equal chest rise and fall. No signs of acute respiratory distress. CARDIAC: Regular rate and rhythm. NEUROLOGIC: GCS is 15. DISCHARGE INSTRUCTIONS: The patient was discharged to a intermediate facility. Activity as tolerated. Weightbearing as tolerated. Strictly posterior hip precautions, right lower extremity. She will have a regular diet as well as Ensure and MightyShakes t.i.d. She will have Physical and Occupational Therapy as well as incentive spirometry and a walker. DISCHARGE MEDICATIONS: Include; 1. Tylenol. 2. Vitamin C. 3. Aspirin. 4. Flexeril. 5. Ferrous sulfate. 6. Ibuprofen. 7. Levothyroxine. 8. Melatonin. 9. MiraLAX. 10. Senokot-S. 11. Tramadol. FOLLOWUP APPOINTMENTS: The patient is to follow up with Dr. Menjivar in his clinic. No followup is needed in Trauma Clinic. This is a summary of the patient's hospitalization. For full details, please see her medical record in its entirety. The [place] Prescription Monitoring Program was accessed and it was deemed safe for the patient to be discharged with pain medications used while she was in the hospital. This patient was seen and evaluated by myself and Dr. Almeida on the day of discharge. Job ID: [id number]
--- NOTE | 2020-03-29 10:44 | PQF ---
CLINICAL DOCUMENTATION CLARIFICATION FORM: Dear : Mk Almeida DO Date / Time: 03/29/2020 Please exercise your independent, professional judgment in responding to the clarification form. Clinical indicators are provided on the bottom of this form for your review Please check appropriate box(es): [x ] Protein Calorie Malnutrition: [ ] Mild [ x] Moderate [ ] Severe [ ] Other Malnutrition (please specify) [ ] Underweight without malnutrition [ ] Cachexia [ ] Other diagnosis (Please specify if any) [ ] Unable to determine In addition, please specify: Present on Admission (POA): [ x ] Yes [ ] No [ ] Unable to determine Physician Signature: Date/Time: For continuity of documentation, please document condition throughout progress notes and discharge summary. Thank You. To be completed by CDI/Coding staff for physician review: Present Clinical Indicators - Signs / Symptoms / Labs Results and Location in Medical Record [ ] severe Malnutrition Registered dietitian on 03/22 [x] BMI of 15.6 Registered dietitian on 03/20 Two or More of the Following ASPEN Criteria: [x] Suspected poor appetite Registered dietitian on 03/20 [x] Severe muscle and fat wasting Registered dietitian on 03/22 [ ] Loss of Muscle Mass [ ] Loss of Subcutaneous Fat [ ] Localized/Generalized Fluid Accumulation [ ] Diminished Handgrip Strength Present Risk Factors Results and Location in Medical Record [x] Aged person 79yrs Registered dietitian on 03/20 [x] Cirrhosis Registered dietitian on 03/22 [x] [ ] Medication [ ] PEG tube [ ] Short gut syndrome Present Treatments Results and Location in Medical Record [x] Dietary consult Registered dietitian on 03/20, 03/22, 03/24 [ ] Nutritional supplements [ ] TPN / tube feedings [ ] Assistance with feeding [ ] Appetite stimulant - medication CDS/Recycling Technician Signature: AAS Phone #: Date/Time: 03/29/2020 Moderate Malnutrition (in acute illness) ? Energy Intake: <75% of estimated energy requirement for > 7 days ? Weight Loss: 1-2%/1 week; 5%/ 1 month; 7.5%/3 months ? Other: mild body fat loss; mild muscle mass loss; mild fluid accumulation; Severe Malnutrition (in acute illness) ? Energy Intake: ? 50% of estimated energy requirement for ? 5 days ? Weight Loss: >2%/1 week; >5%/1 month; >7.5%/3 months ? Other: moderate body fat loss; moderate muscle mass loss; moderate- severe fluid accumulation; measurably reduced exterior interior specialist strength Moderate Malnutrition (in chronic illness) ? Energy Intake: <75% of estimated energy requirement for ?1 month ? Weight Loss: 5%/1 month; 7.5%/3 months; 10%/6 months; 20%/1 year ? Other: mild body fat loss; mild muscle mass loss; mild fluid accumulation Severe Malnutrition (in chronic illness) ? Energy Intake: ?75% of estimated energy requirement for ?1 month ? Weight Loss: >5%/1 month; >7.5%/3 months; >10%/6 months; >20%/1 year ? Other: severe body fat loss; severe muscle mass loss; severe fluid accumulation; measurably reduced exterior interior specialist strength This is a permanent part of the Medical Record MTDD
--- NOTE | 2020-04-01 21:52 | EKG ---
Test Reason : Blood Pressure : / mmHG Vent. Rate : 075 BPM Atrial Rate : 075 BPM P-R Int : 154 ms QRS Dur : 080 ms QT Int : 430 ms P-R-T Axes : 073 -43 085 degrees QTc Int : 480 ms Sinus rhythm with Premature atrial complexes Left axis deviation Septal infarct , age undetermined Abnormal ECG Confirmed by GWENDOLYN ENGEL DO ([id number]), emergency care attendant ESTUARDO LUCIA ([id number]) on 04/01/2020 9:52:20 PM Referred By: Confirmed By:GWENDOLYN ENGEL DO
== END 2020-03-24 19:15 | DRG 467 ==
LOC: ERS 20:19 → SURG A 21:26 → EEVIPCON 21:26
PROVIDERS: ADMIT Surgery; ATTEND Surgery
PROC: 0SRR0JA Replacement of Right Hip Joint, Femoral Surface with Synthetic Substitute, Uncemented, Open Approach (ICD-10-PCS; principal; 2020-03-17)
PROC: 0QS6XZZ Reposition Right Upper Femur, External Approach (ICD-10-PCS; 2020-03-18)
PROC: 0SRR0JZ Replacement of Right Hip Joint, Femoral Surface with Synthetic Substitute, Open Approach (ICD-10-PCS; 2020-03-22)
PROC: 0SPR0JZ Removal of Synthetic Substitute from Right Hip Joint, Femoral Surface, Open Approach (ICD-10-PCS; 2020-03-22)
PROC: 0JBL3ZZ Excision of Right Upper Leg Subcutaneous Tissue and Fascia, Percutaneous Approach (ICD-10-PCS; 2020-03-22)
DX: S72.001A Fracture of unspecified part of neck of right femur, initial encounter for closed fracture (principal); N17.9 Acute kidney failure, unspecified; E27.40 Unspecified adrenocortical insufficiency; T84.020A Dislocation of internal right hip prosthesis, initial encounter; E44.0 Moderate protein-calorie malnutrition; Z68.1 Body mass index [BMI] 19.9 or less, adult; E83.42 Hypomagnesemia; W18.30XA Fall on same level, unspecified, initial encounter; F17.210 Nicotine dependence, cigarettes, uncomplicated; E05.90 Thyrotoxicosis, unspecified without thyrotoxic crisis or storm; G20 Parkinson's disease; G30.9 Alzheimer's disease, unspecified; F02.80 Dementia in other diseases classified elsewhere, unspecified severity, without behavioral disturbance, psychotic disturbance, mood disturbance, and anxiety; J44.9 Chronic obstructive pulmonary disease, unspecified; D64.9 Anemia, unspecified; Y83.9 Surgical procedure, unspecified as the cause of abnormal reaction of the patient, or of later complication, without mention of misadventure at the time of the procedure; R33.9 Retention of urine, unspecified; D17.79 Benign lipomatous neoplasm of other sites; Y92.239 Unspecified place in hospital as the place of occurrence of the external cause; Z90.49 Acquired absence of other specified parts of digestive tract; Z88.0 Allergy status to penicillin; Z79.890 Hormone replacement therapy; Z92.3 Personal history of irradiation; Z98.890 Other specified postprocedural states; Z20.822 Contact with and (suspected) exposure to COVID-19
CPT/HCPCS: 36415; 36430; 71045; 72170; 80048; 80053; 81001; 82533; 83735; 84100; 84484; 85025; 85610; 85730; 86850; 86900; 86901; 87086; 87635; 88304; 88307; 88311; 93005; 96374; 96375; 96376; C1776; G0390; J0690; J1100; J1720; J1885; J1956; J2270; J2370; J2405; J2704; J3010; J3475; J3490; J7050; J7620; P9016; S0028; U0003; U0005

== ENCOUNTER 2021-07-07 00:04 | Inpatient (IN) | payer OTHER, MEDICARE ==
[2021-07-07] MEDS ORDERED: Promethazine HCl 25 MG/ML VIAL IM PRN (01:28)
[2021-07-07] MEDS ORDERED: Morphine 2 MG/ML VIAL SLOW IVP PRN (01:28)
[2021-07-07] MEDS ORDERED: Ondansetron PF 4 MG/2 ML Vial IVP PRN (01:28)
[2021-07-07] MEDS ORDERED: Lorazepam 2 MG/ML VIAL SLOW IVP PRN (01:28)
[2021-07-07] MEDS ORDERED: hydrALAZINE 20 MG/ML VIAL SLOW IVP PRN (01:28)
[2021-07-07] MEDS ORDERED: Sodium Chloride 0.9% 1,000 ML IV SCH (01:30)
[2021-07-07] MEDS ORDERED: traMADol HCl 50 MG TAB PO PRN (01:32)
[2021-07-07] MEDS ORDERED: Cyclobenzaprine 10 MG TAB PO PRN (01:33)
[2021-07-07] MEDS ORDERED: Ketorolac Tromethamine 30 MG/ML VIAL IVP SCH (01:45)
[2021-07-07 02:20] VITALS: BMI 19.8
[2021-07-07] MEDS: Levothyroxine Sodium 75 MCG TAB PO SCH (05:14)
[2021-07-07] MEDS: Clindamycin/D5W 600 MG in Premix Bag 1 BAG IVPB SCH ×3 (05:14→21:03)
[2021-07-07 05:49] LABS: Anion Gap 13 mmol/L (10-20); BUN (Urea Nitrogen) 20 mg/dL (9.8-20.1); Calc. Creatinine Clearance 41 mL/min (70-130); Calcium 8.4 mg/dL (7.8-10.44); Carbon Dioxide 20 mmol/L (23-31); Chloride 109 mmol/L (98-107); Glucose 108 mg/dL (83-110); Magnesium 1.5 mg/dL (1.6-2.6); Phosphorus 3.2 mg/dL (2.3-4.7); Potassium 4.2 mmol/L (3.5-5.1); Sodium 138 mmol/L (136-145)
[2021-07-07] MEDS ORDERED: Acetaminophen 500 MG TAB PO SCH (06:00)
[2021-07-07] MEDS ORDERED: traMADol HCl 50 MG TAB PO SCH (06:00)
[2021-07-07 06:34] LABS: #Basophils 0.1 thou/uL (0.0-0.2); #Lymphocytes 1.3 thou/uL (1.20-3.40); #Monocytes 1.5 thou/uL (0.11-0.59); %Basophils 0.5 % (0.0-1.0); %Eosinophils 0.3 % (0.0-10.0); %Lymphocytes 10.8 % (21.0-51.0); %Monocytes 12.7 % (0.0-10.0); %Neutrophils 75.6 % (42.0-75.0); Hemoglobin 11.7 g/dL (12.0-16.0); Mean Corpuscular HGB CONC 32.5 g/dL (32.0-36.0); Mean Corpuscular Hemoglobin 34.7 pg (27.0-31.0); Platelet Count 149 thou/uL (130-400); RBC Distribution Width 12.9 % (11.5-14.5); Red Blood Cell (RBC) Count 3.37 mill/uL (4.20-5.40); White Blood Cell (WBC) Count 11.9 thou/uL (4.8-10.8)
[2021-07-07] MEDS ORDERED: Magnesium Sulfate In Water 4 GM in Premix Bag 1 BAG IVPB SCH (06:45)
[2021-07-07 07:50] LABS: SARS-CoV-2 NAA Rapid Test Not Detected (NotDetected)
[2021-07-07] MEDS: Enoxaparin Sodium 40 MG/0.4 ML SYRINGE SC SCH (09:33)
[2021-07-07] MEDS: Famotidine/PF 20 mg/2ml Vial SLOW IVP SCH ×2 (09:34→21:56)
[2021-07-07] MEDS: Ketorolac Tromethamine 30 MG/ML VIAL IVP SCH ×3 (09:34→20:49)
[2021-07-07] MEDS: Polyethylene Glycol 3350 17 GM Packet PO SCH (09:35)
[2021-07-07] MEDS: Senokot S 8.6-50 MG TAB PO SCH ×2 (09:35→21:56)
[2021-07-07] MEDS: traMADol HCl 50 MG TAB PO SCH ×3 (09:42→21:37)
[2021-07-07] MEDS ORDERED: Pantoprazole 40 MG VIAL IVP SCH (16:00)
[2021-07-07] MEDS ORDERED: Sodium Chloride 0.9% 500 ML IV SCH (16:00)
[2021-07-07 16:18] LABS: Troponin I 0.011 ng/mL (< 0.028)
[2021-07-07] MEDS ORDERED: Hydrocortisone Sod Succ/PF 100 mg/2 ml Vial IVP SCH (19:45)
[2021-07-07] MEDS: Melatonin 3 MG TAB PO SCH (21:56)
[2021-07-08] MEDS: Ketorolac Tromethamine 30 MG/ML VIAL IVP SCH ×2 (03:27→10:22)
[2021-07-08] MEDS: Clindamycin/D5W 600 MG in Premix Bag 1 BAG IVPB SCH ×3 (05:41→21:37)
[2021-07-08] MEDS: Hydrocortisone Sod Succ/PF 100 mg/2 ml Vial IVP SCH ×3 (05:41→21:44)
[2021-07-08] MEDS: Levothyroxine Sodium 75 MCG TAB PO SCH (05:43)
[2021-07-08 08:01] LABS: #Lymphocytes 0.7 thou/uL (1.20-3.40); #Monocytes 0.8 thou/uL (0.11-0.59); #Neutrophils 11.1 thou/uL (1.40-6.50); %Eosinophils 0.2 % (0.0-10.0); %Lymphocytes 5.2 % (21.0-51.0); %Monocytes 6.1 % (0.0-10.0); %Neutrophils 88.5 % (42.0-75.0); Hemoglobin 12.7 g/dL (12.0-16.0); Mean Corpuscular HGB CONC 31.8 g/dL (32.0-36.0); Mean Corpuscular Hemoglobin 35.1 pg (27.0-31.0); Mean Platelet Volume 7.7 fL (7.4-10.4); Platelet Count 159 thou/uL (130-400); Red Blood Cell (RBC) Count 3.62 mill/uL (4.20-5.40); White Blood Cell (WBC) Count 12.6 thou/uL (4.8-10.8)
[2021-07-08 08:36] LABS: Anion Gap 16 mmol/L (10-20); BUN (Urea Nitrogen) 29 mg/dL (9.8-20.1); Calc. Creatinine Clearance 23 mL/min (70-130); Calcium 8.2 mg/dL (7.8-10.44); Carbon Dioxide 17 mmol/L (23-31); Chloride 107 mmol/L (98-107); Glucose 125 mg/dL (83-110); Magnesium 2.7 mg/dL (1.6-2.6); Phosphorus 5.1 mg/dL (2.3-4.7); Potassium 4.6 mmol/L (3.5-5.1); Sodium 135 mmol/L (136-145)
[2021-07-08] MEDS: Famotidine/PF 20 mg/2ml Vial SLOW IVP SCH ×2 (10:25→21:38)
[2021-07-08] MEDS: Sodium Chloride 0.9% 1,000 ML IV SCH (10:25)
[2021-07-08] MEDS: Enoxaparin Sodium 40 MG/0.4 ML SYRINGE SC SCH (10:28)
[2021-07-08] MEDS ORDERED: Sodium Chloride 0.9% 500 ML IV SCH (11:00)
[2021-07-08] MEDS ORDERED: Acetaminophen/Codeine 30-300mg Tablet PO SCH (11:00)
[2021-07-08] MEDS: Senokot S 8.6-50 MG TAB PO SCH ×2 (14:48→21:38)
[2021-07-08] MEDS: Polyethylene Glycol 3350 17 GM Packet PO SCH (14:48)
[2021-07-08] MEDS ORDERED: ALBUMIN 5% 25 GM/500 ML BAG IVPB SCH (17:00)
[2021-07-08] MEDS: traMADol HCl 50 MG TAB PO SCH (17:15)
[2021-07-08] MEDS: Melatonin 3 MG TAB PO SCH (21:38)
[2021-07-09] MEDS: traMADol HCl 50 MG TAB PO SCH ×3 (05:29→20:31)
[2021-07-09] MEDS: Sodium Chloride 0.9% 1,000 ML IV SCH ×2 (05:29→06:35)
[2021-07-09] MEDS: Clindamycin/D5W 600 MG in Premix Bag 1 BAG IVPB SCH ×3 (05:30→22:19)
[2021-07-09] MEDS: Levothyroxine Sodium 75 MCG TAB PO SCH (05:30)
[2021-07-09] MEDS: Hydrocortisone Sod Succ/PF 100 mg/2 ml Vial IVP SCH ×3 (05:37→22:18)
[2021-07-09] MEDS ORDERED: Enoxaparin Sodium 30 MG/0.3 ML SYRINGE SC SCH (09:00)
[2021-07-09 09:30] LABS: Anion Gap 14 mmol/L (10-20); BUN (Urea Nitrogen) 34 mg/dL (9.8-20.1); Calc. Creatinine Clearance 26 mL/min (70-130); Carbon Dioxide 18 mmol/L (23-31); Chloride 108 mmol/L (98-107); Glucose 139 mg/dL (83-110); Magnesium 2.4 mg/dL (1.6-2.6); Phosphorus 3.2 mg/dL (2.3-4.7); Potassium 4.4 mmol/L (3.5-5.1); Sodium 136 mmol/L (136-145)
[2021-07-09 10:05] LABS: Anion Gap 12 mmol/L (10-20); BUN (Urea Nitrogen) 33 mg/dL (9.8-20.1); Calc. Creatinine Clearance 25 mL/min (70-130); Calcium 7.8 mg/dL (7.8-10.44); Carbon Dioxide 20 mmol/L (23-31); Chloride 107 mmol/L (98-107); Glucose 145 mg/dL (83-110); Potassium 4.1 mmol/L (3.5-5.1); Sodium 135 mmol/L (136-145)
[2021-07-09] MEDS: Polyethylene Glycol 3350 17 GM Packet PO SCH (10:25)
[2021-07-09] MEDS: Senokot S 8.6-50 MG TAB PO SCH ×2 (10:27→20:31)
[2021-07-09] MEDS: Famotidine/PF 20 mg/2ml Vial SLOW IVP SCH (10:34)
[2021-07-09] MEDS ORDERED: Sodium Chloride 0.9% 1,000 ML IV SCH (18:00)
[2021-07-09] MEDS: Acetaminophen/Codeine 30-300mg Tablet PO SCH (18:36)
[2021-07-09] MEDS: Gabapentin 100 MG CAP PO SCH (20:30)
[2021-07-09] MEDS: Cyclobenzaprine 10 MG TAB PO SCH (20:31)
[2021-07-09] MEDS: Melatonin 3 MG TAB PO SCH (20:31)
[2021-07-09] MEDS: Heparin 5,000 UNITS/ML VIAL SC SCH (20:32)
[2021-07-10] MEDS: Acetaminophen/Codeine 30-300mg Tablet PO SCH ×4 (01:54→18:10)
[2021-07-10] MEDS: traMADol HCl 50 MG TAB PO SCH ×3 (06:25→21:30)
[2021-07-10] MEDS: Clindamycin/D5W 600 MG in Premix Bag 1 BAG IVPB SCH ×3 (06:34→21:31)
[2021-07-10] MEDS: Levothyroxine Sodium 75 MCG TAB PO SCH (06:34)
[2021-07-10] MEDS: Hydrocortisone Sod Succ/PF 100 mg/2 ml Vial IVP SCH (06:34)
[2021-07-10 06:45] LABS: Anion Gap 14 mmol/L (10-20); BUN (Urea Nitrogen) 29 mg/dL (9.8-20.1); Calc. Creatinine Clearance 33 mL/min (70-130); Calcium 7.6 mg/dL (7.8-10.44); Carbon Dioxide 16 mmol/L (23-31); Chloride 111 mmol/L (98-107); Glucose 91 mg/dL (83-110); Magnesium 2.2 mg/dL (1.6-2.6); Phosphorus 2.8 mg/dL (2.3-4.7); Potassium 5.2 mmol/L (3.5-5.1); Sodium 136 mmol/L (136-145)
[2021-07-10] MEDS: Famotidine/PF 20 mg/2ml Vial SLOW IVP SCH (09:02)
[2021-07-10] MEDS: Gabapentin 100 MG CAP PO SCH ×2 (09:02→21:30)
[2021-07-10] MEDS: Heparin 5,000 UNITS/ML VIAL SC SCH ×4 (09:02→21:29)
[2021-07-10] MEDS: Polyethylene Glycol 3350 17 GM Packet PO SCH (09:02)
[2021-07-10] MEDS: Senokot S 8.6-50 MG TAB PO SCH ×2 (09:03→21:31)
[2021-07-10] MEDS: Cyclobenzaprine 10 MG TAB PO SCH ×2 (09:03→21:29)
[2021-07-10] MEDS ORDERED: traMADol HCl 50 MG TAB PO PRN (13:42)
[2021-07-10] MEDS: Melatonin 3 MG TAB PO SCH (21:29)
[2021-07-11] MEDS: Acetaminophen/Codeine 30-300mg Tablet PO SCH ×3 (01:07→14:10)
[2021-07-11] MEDS: Clindamycin/D5W 600 MG in Premix Bag 1 BAG IVPB SCH ×3 (05:26→21:16)
[2021-07-11] MEDS: traMADol HCl 50 MG TAB PO SCH ×2 (05:26→20:13)
[2021-07-11] MEDS: Levothyroxine Sodium 75 MCG TAB PO SCH (05:26)
[2021-07-11 06:13] LABS: Hemoglobin 10.9 g/dL (12.0-16.0); Hypochromia SLIGHT = 6-15 cells (100X) (0-5/hpf); Lymphocytes 22 % (21-51); MDiff Complete? YES; Macrocytosis SLIGHT = 6-15 cells (100X) (0-5/hpf); Mean Corpuscular HGB CONC 31.2 g/dL (32.0-36.0); Mean Corpuscular Hemoglobin 33.7 pg (27.0-31.0); Mean Platelet Volume 7.7 fL (7.4-10.4); Monocytes 16 % (0-10); Neutrophil 62 % (42-75); Nucleated RBC 1 % (0); Platelet Count 170 thou/uL (130-400); Platelet Morphology Comment Appears Adequate; RBC Distribution Width 13.6 % (11.5-14.5); Red Blood Cell (RBC) Count 3.24 mill/uL (4.20-5.40); White Blood Cell (WBC) Count 9.9 thou/uL (4.8-10.8)
[2021-07-11 06:38] LABS: Anion Gap 11 mmol/L (10-20); BUN (Urea Nitrogen) 20 mg/dL (9.8-20.1); Calc. Creatinine Clearance 41 mL/min (70-130); Carbon Dioxide 18 mmol/L (23-31); Chloride 112 mmol/L (98-107); Glucose 70 mg/dL (83-110); Magnesium 1.9 mg/dL (1.6-2.6); Phosphorus 1.8 mg/dL (2.3-4.7); Potassium 3.4 mmol/L (3.5-5.1); Sodium 138 mmol/L (136-145)
[2021-07-11 08:18] LABS: BF Color Red
[2021-07-11] MEDS: Cyclobenzaprine 10 MG TAB PO SCH (10:24)
[2021-07-11] MEDS: Gabapentin 100 MG CAP PO SCH ×2 (10:25→21:17)
[2021-07-11] MEDS: Senokot S 8.6-50 MG TAB PO SCH ×2 (10:25→21:19)
[2021-07-11] MEDS: Famotidine/PF 20 mg/2ml Vial SLOW IVP SCH (10:25)
[2021-07-11] MEDS: Polyethylene Glycol 3350 17 GM Packet PO SCH (10:33)
[2021-07-11] MEDS: Heparin 5,000 UNITS/ML VIAL SC SCH ×2 (11:00→21:18)
[2021-07-11] MEDS ORDERED: Sodium Chloride 0.9% 500 ML IV SCH (11:15)
[2021-07-11] MEDS ORDERED: Acetaminophen/Codeine 30-300mg Tablet PO PRN (17:49)
[2021-07-11] MEDS ORDERED: traMADol HCl 50 MG TAB PO PRN (17:50)
[2021-07-11] MEDS ORDERED: Cyclobenzaprine 10 MG TAB PO PRN (17:51)
[2021-07-11] MEDS ORDERED: Famotidine 20 MG TAB PO SCH (21:00)
[2021-07-11] MEDS: Melatonin 3 MG TAB PO SCH (21:17)
[2021-07-12] MEDS: Clindamycin/D5W 600 MG in Premix Bag 1 BAG IVPB SCH ×2 (05:20→16:52)
[2021-07-12] MEDS: Levothyroxine Sodium 75 MCG TAB PO SCH (05:21)
[2021-07-12 05:49] LABS: Eosinophils 2 % (0-10); Hemoglobin 12.8 g/dL (12.0-16.0); Lymphocytes 18 % (21-51); MDiff Complete? YES; Macrocytosis SLIGHT = 6-15 cells (100X) (0-5/hpf); Mean Corpuscular HGB CONC 32.4 g/dL (32.0-36.0); Mean Corpuscular Hemoglobin 34.4 pg (27.0-31.0); Mean Platelet Volume 7.7 fL (7.4-10.4); Monocytes 12 % (0-10); Neutrophil 68 % (42-75); Platelet Count 177 thou/uL (130-400); Platelet Morphology Comment Appears Adequate; RBC Distribution Width 13.5 % (11.5-14.5); Red Blood Cell (RBC) Count 3.72 mill/uL (4.20-5.40); White Blood Cell (WBC) Count 10.9 thou/uL (4.8-10.8)
[2021-07-12 05:57] LABS: Anion Gap 14 mmol/L (10-20); BUN (Urea Nitrogen) 11 mg/dL (9.8-20.1); Calc. Creatinine Clearance 45 mL/min (70-130); Calcium 7.9 mg/dL (7.8-10.44); Carbon Dioxide 23 mmol/L (23-31); Chloride 104 mmol/L (98-107); Glucose 90 mg/dL (83-110); Magnesium 1.5 mg/dL (1.6-2.6); Phosphorus 2.3 mg/dL (2.3-4.7); Potassium 3.6 mmol/L (3.5-5.1); Sodium 137 mmol/L (136-145)
[2021-07-12] MEDS: Gabapentin 100 MG CAP PO SCH (07:54)
[2021-07-12] MEDS: Polyethylene Glycol 3350 17 GM Packet PO SCH (07:55)
[2021-07-12] MEDS: Heparin 5,000 UNITS/ML VIAL SC SCH (07:55)
[2021-07-12] MEDS: Senokot S 8.6-50 MG TAB PO SCH (08:46)
[2021-07-12 17:19] VITALS: TEMP 98.1
[2021-07-12 17:27] VITALS: BP 128/67
[2021-07-12] MEDS ORDERED: Budesonide 0.5 MG/2 ML NEB NEB SCH (18:30)
== END 2021-07-12 19:35 | disposition swing bed (61) | DRG 552 ==
LOC: SURG A 01:28
PROVIDERS: ADMIT Student in an Organized Health Care Education/Training Program; ATTEND Surgery
DX: S32.110A Nondisplaced Zone I fracture of sacrum, initial encounter for closed fracture (principal); S32.511A Fracture of superior rim of right pubis, initial encounter for closed fracture; S32.008A Other fracture of unspecified lumbar vertebra, initial encounter for closed fracture; N17.9 Acute kidney failure, unspecified; C34.91 Malignant neoplasm of unspecified part of right bronchus or lung; C34.92 Malignant neoplasm of unspecified part of left bronchus or lung; Z66 Do not resuscitate; E03.9 Hypothyroidism, unspecified; K74.60 Unspecified cirrhosis of liver; F17.210 Nicotine dependence, cigarettes, uncomplicated; R06.89 Other abnormalities of breathing; J44.9 Chronic obstructive pulmonary disease, unspecified; Z60.2 Problems related to living alone; W01.0XXA Fall on same level from slipping, tripping and stumbling without subsequent striking against object, initial encounter; Z96.641 Presence of right artificial hip joint; Z20.822 Contact with and (suspected) exposure to COVID-19; Z98.890 Other specified postprocedural states; Z90.710 Acquired absence of both cervix and uterus; Z88.0 Allergy status to penicillin; Z85.07 Personal history of malignant neoplasm of pancreas; Z90.49 Acquired absence of other specified parts of digestive tract; Z92.3 Personal history of irradiation; Z79.890 Hormone replacement therapy
CPT/HCPCS: 36415; 71045; 71250; 80048; 82533; 83735; 83880; 84100; 84484; 85025; 87070; 87102; 87116; 87205; 87206; 88112; 88305; 89051; 93005; 93010; 94640; C9113; J1644; J1650; J1720; J1885; J2405; J3475; J3490; J7030; J7050; J7620; P9045; S0028; U0002